=== PATIENT | male | born 1990 | race Caucasian/White ===

== ENCOUNTER → 2016-11-19 | Outpatient (CLI) | payer BC ==
[~2016-11-19] MED LIST: ALBUTEROL IH; AMOX500C2 PO; CETI10TA57 PO; DICL75TA2 PO; ONDA-43 PO; TRM50T PO; albuterol nebulizer INH
[2016-11-19 16:26] LABS: BASOPHILS % (AUTO) 0 % (0-10); EOSINOPHILS # (AUTO) 0.4 10^3/uL (0.0-0.3); EOSINOPHILS % (AUTO) 4 % (0-10); LYMPHOCYTES # (AUTO) 2.5 X 10^3 (1.0-4.0); LYMPHOCYTES % (AUTO) 27 % (12-44); MEAN CORPUSCULAR HEMOGLOBIN 32 PG (25-34); MEAN CORPUSCULAR HGB CONC 36 G/DL (32-36); MEAN CORPUSCULAR VOLUME 88 FL (80-99); MEAN PLATELET VOLUME 9.8 FL (7.4-10.4); MONOCYTES # (AUTO) 0.8 X 10^3 (0.0-1.0); MONOCYTES % (AUTO) 9 % (0-12); NEUTROPHILS # (AUTO) 5.4 X 10^3 (1.8-7.8); NEUTROPHILS % (AUTO) 60 % (42-75); PLATELET COUNT 261 10^3/uL (130-400); RED BLOOD COUNT 4.88 10^6/uL (4.35-5.85); RED CELL DISTRIBUTION WIDTH 12.2 % (10.0-14.5); WHITE BLOOD COUNT 9.1 10^3/uL (4.3-11.0)
== END ==
LOC: LAB 16:11
PROVIDERS: ATTEND Family Medicine
DX: R10.31 Right lower quadrant pain (principal)
CPT/HCPCS: 36415; 85025

== ENCOUNTER → 2017-07-20 | Outpatient (CLI) | payer BC | LOC: CARD 13:52 | PROVIDERS: ATTEND Internal Medicine Cardiovascular Disease | DX: R07.89 Other chest pain (principal); R00.2 Palpitations; R06.00 Dyspnea, unspecified; Z82.49 Family history of ischemic heart disease and other diseases of the circulatory system | CPT/HCPCS: 93306 ==

== ENCOUNTER → 2017-08-01 | Outpatient (CLI) | payer BC | LOC: CARD 10:11 | PROVIDERS: ATTEND Internal Medicine Cardiovascular Disease | DX: R07.89 Other chest pain (principal); R00.2 Palpitations; R06.00 Dyspnea, unspecified; Z82.49 Family history of ischemic heart disease and other diseases of the circulatory system | CPT/HCPCS: 93017 ==

== ENCOUNTER 2018-09-11 21:00 | Emergency (ER) | payer BC, OTHER ==
[~2018-09-11] VITALS: Ht 180.3 cm; Wt 72.6 kg
--- OUTSIDE RECORDS SUMMARY | 2018-09-11 21:05 | XMS REPORT ---
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 Active 179165962 Problem High risk sexual behavior Z72.51 Active 334403898 Problem Family history of diabetes mellitus Z83.3 Active 801582130 Problem Mixed hyperlipidemia E78.2 Active 315960594 Problem Intermittent palpitations R00.2 Active 987318481 ALLERGIES No Information ENCOUNTERS Encounter Location Date Diagnosis [facility] [id number] [place] [address] 39691- 5234 September, [facility] [id number] [place] [address] 75687- 1356 12 Jun, 2018 Family history of diabetes mellitus Z83.3 ; Mixed hyperlipidemia E78.2 and Opioid abuse, in remission F11.11 [facility] [address] [address] Jun, Sore throat J02.9 and Nausea and vomiting, intractability of vomiting not specified, unspecified vomiting type R11.2 [facility] [address] [address] Feb, Anxiety state, unspecified F41.1 [facility] [address] [place] [address] 75120- 0261 Feb, Anxiety state, unspecified F41.1 [facility] [address] [place] [address] 02778- 2656 Jan, Pain of left great toe M79.675 [facility] [address] [place] [address] 67812 -3051 05 Jan, 2018 Cough R05 and Viral upper respiratory tract infection J06.9 [facility] [address] [place] [address] 44582- 5882 Dec, Chest discomfort R07.89 ; Anxiety state, unspecified F41.1 ; Intermittent palpitations R00.2 and Dyspnea, unspecified type R06.00 [facility] [id number] [place] [address] 05831- 8274 Dec, Anxiety state, unspecified F41.1 [facility] [facility] [id number] [place] [address] 15953- 0221 Jun, Chest discomfort R07.89 ; Intermittent palpitations R00.2 ; Dyspnea, unspecified type R06.00 and Family history of early CAD Z82.49 [place] [facility] [id number] [place] [address] 85224- 4344 May, [place] [id number] [place] [address] 13978- 1198 May, Mixed hyperlipidemia E78.2 ; Mild intermittent asthma without complication J45.20 ; Family history of early CAD Z82.49 ; Family history of protein S deficiency Z83.2 and Vitamin deficiency E56.9 [place] [facility] [id number] [place] [address] 02649- 0903 Nov, [facility] [facility] [id number] [place] [address] 22748- 2101 Apr, Chest discomfort R07.89 and Intermittent palpitations R00.2 [place] [id number] [place] [address] 33179- 6695 Mar, Chest pain, unspecified type R07.9 ; Dyspnea, unspecified type R06.00 ; Mixed hyperlipidemia E78.2 and Family history of early CAD Z82.49 [place] [address] [place] [address]- 7760 04 Feb, 2016 Mixed hyperlipidemia E78.2 ; Chest discomfort R07.89 and Intermittent palpitations R00.2 [facility] [address] 30758- 3834 Feb, [facility] [address] 51746- 7577 Jan, [facility] IN [facility] [address] 330[address] Nov, Candidiasis B37.9 [place] [address] 51647- 2453 September, Mixed hyperlipidemia E78.2 [place] [address] 57079- 9671 September, Mixed hyperlipidemia E78.2 ; Family history of diabetes mellitus Z83.3 ; Mild intermittent asthma without complication J45.20 ; High risk sexual behavior Z72.51 and Chest discomfort R07.89 [facility] [address] 06058- 7069 May, Cough variant asthma J45.991 [facility] [address] 8[address]59 -8358 Apr, Cough variant asthma J45.991 ; Cough R05 and Wheezing R06.2 [place] [id number] [place] [address] 82408- 2115 Aug, [place] [id number] [place] [address] 98439- 8184 Aug, Via [facility] [address] [place] [id number] Apr [place] [address] 03851- 7465 Apr, [place] [id number] [place] [address] 45698- 0459 Mar, [facility] [place] [facility] [address] [id number] [place] [address]- 8271 Mar, [facility] [place] [facility] [address] [id number] [place] [address]- 5239 Mar, [facility] [place] [facility] [address] [id number] [place] [address]- 0658 Mar, [facility] [place] [facility] [address] [id number] [place] [address]- 2161 Mar, [facility] [place] [facility] [address] [id number] [place] [address]- 3020 Mar, [facility] [place] [facility] [address] [id number] [place] [address]- 3599 Mar, [facility] [place] [facility] [address] [id number] [place] [address]- 8582 Mar, [facility] [place] [facility] [address] [id number] [place] [address]- 0638 Mar, [facility] [place] [facility] [address] [id number] [place] [address]- 8668 Nov, [facility] [place] [facility] [address] [id number] [place] [address]- 6032 Nov, [facility] [place] [facility] [address] [id number] [place] [address]- 3481 May, [facility] [place] [facility] [address] [id number] [place] [address]- 7502 May, [facility] [place] [facility] [address] [id number] [place] [address]- 1436 May, [facility] [place] [facility] [address] [id number] [place] [address]- 6569 Apr, [facility] [place] [facility] [address] [id number] [place] [address]- 8475 Apr, [facility] [place] [facility] [address] [id number] [place] [address]- 7496 Apr, [facility] [place] [facility] [address] [id number] [place] [address]- 1919 Apr, [facility] [place] [facility] [address] [id number] [place] [address]- 4647 Dec, [facility] [place] [facility] [address] [id number] [place] [address] Dec, [facility] [place] [facility] [address] [id number] [place] [address]- 7261 Dec, [facility] [place] [facility] [address] [id number] [place] [address]- 9697 Dec, [facility] [place] [facility] [address] [id number] [place] [address]- 3437 Dec, [facility] [place] [facility] [address] [id number] [place] [address]- 1187 Dec, [facility] [place] [facility] [address] [id number] [place] [address]- 8003 Nov, [facility] [place] [facility] [address] [id number] [place] [address]- 8775 Nov, [facility] [place] [facility] [address] [id number] [place] [address]- 7578 Nov, [facility] [place] [facility] [address] [id number] [place] [address]- 8006 Nov, [facility] [place] [facility] [address] [id number] [address] 3063 Oct, [facility] [place] [facility] [address] [id number] [place] [address]- 0261 Oct, [facility] [place] [facility] [address] [id number] [place] [address]- 7633 15 Aug, 2012 [facility] [place] [facility] [address] [id number] [place] [address]- 8817 Jul, [facility] [place] [facility] [address] [id number] [place] [address]- 4023 Jun, [facility] [address] [id number] [place] [address]- 1229 May, [facility] [place] [facility] [address] [id number] [place] [address]- 9224 May, [facility] [place] [facility] [address] [id number] [place] [address]- 8566 May, [facility] [place] [facility] [address] [id number] [place] [address]- 0211 May, [facility] [place] [facility] [address] [id number] [place] [address]- 5641 Mar, [facility] [place] [facility] [address] [id number] [place] [address]- 1474 Mar, [facility] [address] [id number] [place] [address]- 4168 Mar, [facility] [place] [facility] [address] [id number] [place] [address]- 0837 Mar, [facility] [place] [facility] [address] [id number] [place] [address]- 3315 Feb, [facility] [place] [facility] [address] [id number] [place] [address]- 9052 Feb, [facility] [place] [facility] [address] [id number] [place] [address]- 1541 Dec, [facility] [place] [facility] [address] [id number] [place] [address]- 0476 Oct, [facility] [place] [facility] [address] [id number] [place] [address]- 8890 September, [facility] [place] [facility] [address] [id number] [place] [address]- 0516 September, [facility] [place] [facility] [address] [id number] [place] [address]- 1319 Jul, [facility] [place] [facility] [address] [id number] [place] [address]- 1926 Jun, [facility] [place] [facility] [address] [id number] [place] [address]- 6891 Jun, [facility] [place] [facility] [address] [id number] [place] [address]- 9771 Jun, [facility] [place] [facility] [address] [id number] [place] [address]- 9309 Jun, [facility] [place] [facility] [address] [id number] [place] [address]- 1357 Jun, [facility] [place] [facility] [address] [id number] [place] [address]- 8361 May, [facility] [place] [facility] [address] [id number] [place] [address]- 1786 May, [facility] [place] [facility] [address] [id number] [place] [address]- 9803 Apr, [facility] [place] [facility] [address] [id number] [place] [address]- 9161 Apr, [facility] [place] [facility] [address] [id number] [place] [address]- 1494 Dec, [facility] [place] [facility] [address] [id number] [place] [address]- 8543 September, [facility] [place] [facility] [address] [id number] [address]- 2660 Mar, [facility] [place] [facility] [address] [id number] [place] [address]- 5397 Feb, [facility] [place] [facility] [address] [id number] [place] [address]- 7272 18 Feb, 2010 [facility] [place] [facility] [address] [id number] [place] [address]- 4769 14 Feb, 2010 [facility] [place] [facility] [address] [facility] [id number] [place] 3185 10 Jan, 2010 IMMUNIZATIONS No Known Immunizations SOCIAL HISTORY Never Assessed REASON FOR VISIT EMR-[facility] [place] PLAN OF CARE VITAL SIGNS MEDICATIONS Unknown Medications RESULTS No Results PROCEDURES No Known procedures INSTRUCTIONS MEDICATIONS ADMINISTERED No Known Medications MEDICAL (GENERAL) HISTORY Type Description Date Medical History asthma Medical History Left hip perthes Medical History History of Drug Abuse Clean Since 2009 Medical History Hyperlipidemia Medical History Depressive disorder, not elsewhere classified Surgical History Multiple orthopedic surgeries on hip, shoulder, and knee.
--- OUTSIDE RECORDS SUMMARY | 2018-09-11 21:05 | XMS REPORT ---
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 Name Role Phone Migration, Doctor Unavailable Unavailable PROBLEMS Type Condition ICD9-CM Code [id number] Code Onset Dates Condition Status SNOMED Code Problem Mild intermittent asthma without complication J45.20 Active 858437579 Problem Chest discomfort R07.89 Active 596504566 Problem Anxiety state, unspecified F41.1 Active 133898479 Problem Opioid abuse, in remission F11.11 Active 228999475 Problem High risk sexual behavior Z72.51 Active 099099695 Problem Family history of diabetes mellitus Z83.3 Active 063621954 Problem Mixed hyperlipidemia E78.2 Active 829683238 Problem Intermittent palpitations R00.2 Active 837499716 ALLERGIES No Information ENCOUNTERS Encounter Location Date Diagnosis [facility] [address] [place] [address] 45563- 5508 September, [facility] [id number] [place] [address] 61238- 1965 12 Jun, 2018 Family history of diabetes mellitus Z83.3 ; Mixed hyperlipidemia E78.2 and Opioid abuse, in remission F11.11 [facility] [address] [address] Jun, Sore throat J02.9 and Nausea and vomiting, intractability of vomiting not specified, unspecified vomiting type R11.2 [facility] [address] [address]- 8173 Feb, Anxiety state, unspecified F41.1 [facility] [address] [place] [address] 13484- 2082 Feb, Anxiety state, unspecified F41.1 [facility] [address] [place] [address] 58934- 3231 Jan, Pain of left great toe M79.675 [facility] IN [facility] [address] [place] [address] 01778 -3140 05 Jan, 2018 Cough R05 and Viral upper respiratory tract infection J06.9 [facility] [address] [place] [address] 76183- 8329 Dec, Chest discomfort R07.89 ; Anxiety state, unspecified F41.1 ; Intermittent palpitations R00.2 and Dyspnea, unspecified type R06.00 [facility] [id number] [place] [address] 70726- 8390 Dec, Anxiety state, unspecified F41.1 [facility] [id number] [place] [address] 54483- 4994 Jun, Chest discomfort R07.89 ; Intermittent palpitations R00.2 ; Dyspnea, unspecified type R06.00 and Family history of early CAD Z82.49 [place] [facility] [id number] [place] [address] 63890- 3451 May, [place] [id number] [place] [address] 72205- 5581 May, Mixed hyperlipidemia E78.2 ; Mild intermittent asthma without complication J45.20 ; Family history of early CAD Z82.49 ; Family history of protein S deficiency Z83.2 and Vitamin deficiency E56.9 [place] [id number] [place] [address] 12773- 4033 Nov, [facility] [id number] [place] [address] 28746- 2172 Apr, Chest discomfort R07.89 and Intermittent palpitations R00.2 [facility] [id number] [place] [address] 89122- 8426 Mar, Chest pain, unspecified type R07.9 ; Dyspnea, unspecified type R06.00 ; Mixed hyperlipidemia E78.2 and Family history of early CAD Z82.49 [place] [address] [place] [address]- 0157 04 Feb, 2016 Mixed hyperlipidemia E78.2 ; Chest discomfort R07.89 and Intermittent palpitations R00.2 [facility] [address] [address]- [address]08 Feb, [facility] [address] 65346- 2300 Jan, [facility] [address] 32827 -2221 Nov, Candidiasis B37.9 [facility] [address] 29844- 7988 September, Mixed hyperlipidemia E78.2 [place] [address] 85947- 9993 September, Mixed hyperlipidemia E78.2 ; Family history of diabetes mellitus Z83.3 ; Mild intermittent asthma without complication J45.20 ; High risk sexual behavior Z72.[address] [facility] [address] 54992- 7453 May, Cough variant asthma J45.991 [facility] [address] 9[address] -0692 Apr, Cough variant asthma J45.991 ; Cough R05 and Wheezing R06.2 [place] [id number] [place] [address] 71647- 5824 Aug, [facility] [id number] [place] [address] 88529- 5823 Aug, Via [facility] [address] [place] [id number] Apr [place] [address] 24832- 0576 Apr, [place] [id number] [place] [address] 61943- 6170 Mar, [facility] [place] [facility] [address] [id number] [place] [address]- 9296 Mar, [facility] [place] [facility] [address] [id number] [place] [address]- 6878 Mar, [facility] [place] [facility] [address] [id number] [place] [address]- 1672 Mar, [facility] [place] [facility] [address] [id number] [place] [address]- 7965 Mar, [facility] [place] [facility] [address] [id number] [place] [address]- 7953 Mar, [facility] [place] [facility] [address] [id number] [place] [address]- 9248 Mar, [facility] [place] [facility] [address] [id number] [place] [address]- 7709 Mar, [facility] [place] [facility] [address] [id number] [place] [address]- 9898 Mar, [facility] [place] [facility] [address] [id number] [place] [address]- 7905 Nov, [facility] [place] [facility] [address] [id number] [place] [address]- 5051 Nov, [facility] [place] [facility] [address] [id number] [place] [address]- 7556 May, [facility] [place] [facility] [address] [id number] [place] [address]- 5860 May, [facility] [place] [facility] [address] [id number] [place] [address]- 9913 May, [facility] [place] [facility] [address] [id number] [place] [address]- 9621 Apr, [facility] [place] [facility] [address] [id number] [place] [address]- 1347 Apr, [facility] [place] [facility] [address] [id number] [place] [address]- 7435 Apr, [facility] [place] [facility] [address] [id number] [place] 4498 Apr, [facility] [place] [facility] [address] [id number] [place] [address]- 7271 Dec, [facility] [place] [facility] [address] [id number] [place] 7314 Dec, [facility] [place] [facility] [address] [id number] [place] [address]- 4675 Dec, [facility] [place] [facility] [address] [id number] [place] [address]- 6567 Dec, [facility] [place] [facility] [address] [id number] [place] [address]- 0514 Dec, [facility] [place] [facility] [address] [id number] [place] [address]- 0155 Dec, [facility] [place] [facility] [address] [id number] [place] [address]- 6183 Nov, [facility] [place] [facility] [address] [id number] [place] [address]- 5796 Nov, [facility] [place] [facility] [address] [id number] [place] [address]- 1131 Nov, [facility] [place] [facility] [address] [id number] [place] [address]- 6706 Nov, [facility] [place] [facility] [address] [id number] [address]- 4151 Oct, [facility] [place] [facility] [address] [id number] [place] [address]- 8238 Oct, [facility] [place] [facility] [address] [id number] [place] [address]- 6056 15 Aug, 2012 [facility] [place] [facility] [address] [id number] [place] [address]- 1046 Jul, [facility] [place] [facility] [address] [id number] [place] [address]- 4717 Jun, [facility] [address] [id number] [place] [address]- 3516 May, [facility] [place] [facility] [address] [id number] [place] [address]- 9502 May, [facility] [place] [facility] [address] [id number] [place] [address]- 8257 May, [facility] [place] [facility] [address] [id number] [place] [address]- 6807 May, [facility] [place] [facility] [address] [id number] [place] [address]- 4956 Mar, [facility] [place] [facility] [address] [id number] [place] [address]- 6711 Mar, [facility] [address] [id number] [place] [address]- 1866 Mar, [facility] [place] [facility] [address] [id number] [place] [address]- 3242 Mar, [facility] [place] [facility] [address] [id number] [place] [address]- 6826 Feb, [facility] [place] [facility] [address] [id number] [place] [address]- 9698 Feb, [facility] [place] [facility] [address] [id number] [place] [address]- 1031 Dec, [facility] [place] [facility] [address] [id number] [place] [address]- 0362 Oct, [facility] [place] [facility] [address] [id number] [place] [address] September, [facility] [place] [facility] [address] [id number] [place] [address] September, [facility] [place] [facility] [address] [id number] [place] [address] Jul, [facility] [place] [facility] [address] [id number] [place] [address] Jun, [facility] [place] [facility] [address] [id number] [place] [address] Jun, [facility] [place] [facility] [address] [id number] [place] [address] Jun, [facility] [place] [facility] [address] [id number] [place] [address] Jun, [facility] [place] [facility] [address] [id number] [place] [address] Jun, [facility] [place] [facility] [address] [id number] [place] [address] May, [facility] [place] [facility] [address] [id number] [place] [address] May, [facility] [place] [facility] [address] [id number] [place] [address] Apr, [facility] [place] [facility] [address] [id number] [place] [address] Apr, [facility] [place] [facility] [address] [id number] [place] [address] Dec, [facility] [place] [facility] [address] [id number] [place] [address] September, [facility] [place] [facility] [address] [id number] [address] Mar, [facility] [place] [facility] [address] [id number] [place] [address] Feb, [facility] [place] [facility] [address] [id number] [place] [address] 18 Feb, 2010 [facility] [place] [facility] [address] [id number] [place] [address] 14 Feb, 2010 [facility] [place] [facility] [address] [facility] [place] [id number] [address] 10 Jan, 2010 IMMUNIZATIONS No Known Immunizations SOCIAL HISTORY Never Assessed REASON FOR VISIT EMR-[facility] [place] OF CARE VITAL SIGNS MEDICATIONS Unknown [...]
--- OUTSIDE RECORDS SUMMARY | 2018-09-11 21:05 | XMS REPORT ---
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 Active 786573322 Problem High risk sexual behavior Z72.51 Active 118483014 Problem Family history of diabetes mellitus Z83.3 Active 801861975 Problem Mixed hyperlipidemia E78.2 Active 543816688 Problem Intermittent palpitations R00.2 Active 315500770 ALLERGIES No Information ENCOUNTERS Encounter Location Date Diagnosis [facility] [id number] [place] [address] 97086- 5550 September, [facility] [id number] [place] [address] 65346- 0547 12 Jun, 2018 Family history of diabetes mellitus Z83.3 ; Mixed hyperlipidemia E78.2 and Opioid abuse, in remission F11.11 [facility] [address], [place] [address] Jun, Sore throat J02.9 and Nausea and vomiting, intractability of vomiting not specified, unspecified vomiting type R11.2 [facility] [address], [place] [address] Feb, Anxiety state, unspecified F41.1 [facility] [address] [place] [address] 92500- 6203 Feb, Anxiety state, unspecified F41.1 [facility] [address] [place] [address] 46217- 9579 Jan, Pain of left great toe M79.675 [facility] [address] [place] [address] 64569 -1877 05 Jan, 2018 Cough R05 and Viral upper respiratory tract infection J06.9 [facility] [address] [place] [address] 41087- 5644 Dec, Chest discomfort R07.89 ; Anxiety state, unspecified F41.1 ; Intermittent palpitations R00.2 and Dyspnea, unspecified type R06.00 [facility] [facility] [id number] [place] [address] 53029- 7396 Dec, Anxiety state, unspecified F41.1 [facility] [id number] [place] [address] 95983- 8622 Jun, Chest discomfort R07.89 ; Intermittent palpitations R00.2 ; Dyspnea, unspecified type R06.00 and Family history of early CAD Z82.49 [facility] [id number] [place] [address] 85188- 2481 May, [facility] [id number] [place] [address] 24355- 8791 May, Mixed hyperlipidemia E78.2 ; Mild intermittent asthma without complication J45.20 ; Family history of early CAD Z82.49 ; Family history of protein S deficiency Z83.2 and Vitamin deficiency E56.9 [facility] [id number] [place] [address] 32982- 8846 Nov, [facility] [id number] [place] [address] 83746- 4158 Apr, Chest discomfort R07.89 and Intermittent palpitations R00.2 [facility] [id number] [place] [address] 88480- 1934 Mar, Chest pain, unspecified type R07.9 ; Dyspnea, unspecified type R06.00 ; Mixed hyperlipidemia E78.2 and Family history of early CAD Z82.49 [place] [address] [place] [address]- [address] 04 Feb, 2016 Mixed hyperlipidemia E78.2 ; Chest discomfort R07.89 and Intermittent palpitations R00.2 [facility] [address] [address]- 1961 Feb, [facility] [address] 61659- 7593 Jan, [facility] [address] 09772 -2367 Nov, Candidiasis B37.9 [place] [address] 19124- 8477 September, Mixed hyperlipidemia E78.2 [facility] [address] 68743- 9293 September, Mixed hyperlipidemia E78.2 ; Family history of diabetes mellitus Z83.3 ; Mild intermittent asthma without complication J45.20 ; High risk sexual behavior Z72.51 and Chest discomfort R07.89 [facility] [address] 59299- 3481 May, Cough variant asthma J45.991 [facility] [address] [address]83 [address]8157 Apr, Cough variant asthma J45.991 ; Cough R05 and Wheezing R06.2 [facility] [id number] [place] [address] 34598- 9100 Aug, [facility] [id number] [place] [address] 89606- 7154 Aug, Via [facility] [address] [place] [id number] Apr [place] [address] 16324- 3911 Apr, [facility] [id number] [place] [address] 46695- 7526 Mar, [facility] [place] [facility] [address] [id number] [place] [address]- 7686 Mar, [facility] [place] [facility] [address] [id number] [place] [address]- 1387 Mar, [facility] [place] [facility] [address] [id number] [place] [address]- 1070 Mar, [facility] [place] [facility] [address] [id number] [place] [address]- 2540 Mar, [facility] [place] [facility] [address] [id number] [place] [address]- 5928 Mar, [facility] [place] [facility] [address] [id number] [place] [address]- 7508 Mar, [facility] [place] [facility] [address] [id number] [place] [address]- 3225 Mar, [facility] [place] [facility] [address] [id number] [place] [address]- 3897 Mar, [facility] [place] [facility] [address] [id number] [place] [address]- 7955 Nov, [facility] [place] [facility] [address] [id number] [place] [address]- 5394 Nov, [facility] [place] [facility] [address] [id number] [place] [address]- 0555 May, [facility] [place] [facility] [address] [id number] [place] [address]- 4272 May, [facility] [place] [facility] [address] [id number] [place] [address]- 3511 May, [facility] [place] [facility] [address] [id number] [place] [address]- 2158 Apr, [facility] [place] [facility] [address] [id number] [place] [address]- 9011 Apr, [facility] [place] [facility] [address] [id number] [place] [address]- 7942 Apr, [facility] [place] [facility] [address] [id number] [place] 0622 Apr, [facility] [place] [facility] [address] [id number] [place] [address]- 4614 Dec, [facility] [place] [facility] [address] [id number] [place] 2810 Dec, [facility] [place] [facility] [address] [id number] [place] [address]- 9148 Dec, [facility] [place] [facility] [address] [id number] [place] [address]- 3959 Dec, [facility] [place] [facility] [address] [id number] [place] [address]- 5564 Dec, [facility] [place] [facility] [address] [id number] [place] [address]- 0004 Dec, [facility] [place] [facility] [address] [id number] [place] [address]- 7940 Nov, [facility] [place] [facility] [address] [id number] [place] [address]- 8618 Nov, [facility] [place] [facility] [address] [id number] [place] [address]- 3487 Nov, [facility] [place] [facility] [address] [id number] [place] [address]- 2089 Nov, [facility] [place] [facility] [address] [id number] [address]- 4497 Oct, [facility] [place] [facility] [address] [id number] [place] [address]- 3261 Oct, [facility] [place] [facility] [address] [id number] [place] [address]- 7050 15 Aug, 2012 [facility] [place] [facility] [address] [id number] [place] [address]- 4130 Jul, [facility] [place] [facility] [address] [id number] [place] [address]- 2563 Jun, [facility] [address] [id number] [place] [address]- 7643 May, [facility] [place] [facility] [address] [id number] [place] [address]- 1571 May, [facility] [place] [facility] [address] [id number] [place] [address]- 9832 May, [facility] [place] [facility] [address] [id number] [place] [address]- 9718 May, [facility] [place] [facility] [address] [id number] [place] [address]- 6804 Mar, [facility] [place] [facility] [address] [id number] [place] [address]- 7632 Mar, [facility] [address] [id number] [place] [address]- 0777 Mar, [facility] [place] [facility] [address] [id number] [place] [address]- 6194 Mar, [facility] [place] [facility] [address] [id number] [place] [address]- 9261 Feb, [facility] [place] [facility] [address] [id number] [place] [address]- 3248 Feb, [facility] [place] [facility] [address] [id number] [place] [address]- 7521 Dec, [facility] [place] [facility] [address] [id number] [place] [address]- 6762 Oct, [facility] [place] [facility] [address] [id number] [place] [address]- 8606 September, [facility] [place] [facility] [address] [id number] [place] [address]- 3026 September, [facility] [place] [facility] [address] [id number] [place] [address]- 4671 Jul, [facility] [place] [facility] [address] [id number] [place] [address]- 7940 Jun, [facility] [place] [facility] [address] [id number] [place] [address]- 0231 Jun, [facility] [place] [facility] [address] [id number] [place] [address]- 1777 Jun, [facility] [place] [facility] [address] [id number] [place] [address]- 8638 Jun, [facility] [place] [facility] [address] [id number] [place] [address]- 3001 Jun, [facility] [place] [facility] [address] [id number] [place] [address]- 3040 May, [facility] [place] [facility] [address] [id number] [place] [address]- 5773 May, [facility] [place] [facility] [address] [id number] [place] [address]- 9666 Apr, [facility] [place] [facility] [address] [id number] [place] [address]- 9790 Apr, [facility] [place] [facility] [address] [id number] [place] [address]- 5768 Dec, [facility] [place] [facility] [address] [id number] [place] [address]- 5020 September, [facility] [place] [facility] [address] [id number], [place] [address]- 8013 Mar, [facility] [place] [facility] [address] [id number] [place] [address]- 7556 Feb, [facility] [place] [facility] [address] [id number] [place] [address]- 3412 18 Feb, 2010 [facility] [place] [facility] [address] [id number] [place] [address]- 7018 14 Feb, 2010 [facility] [place] [facility] [address] [facility] [id number] [place]- [address]193 10 Jan, 2010 IMMUNIZATIONS No Known Immunizations SOCIAL HISTORY Never Assessed REASON FOR VISIT EMR-[facility] [place] PLAN OF CARE VITAL SIGNS MEDICATIONS Unknown [...]
--- OUTSIDE RECORDS SUMMARY | 2018-09-11 21:05 | XMS REPORT ---
Author Author Migration, Doctor Organization [facility] Address Unknown Phone Unavailable Care Team Providers Care Rat Breeder Name Role Phone Migration, Doctor Unavailable Unavailable PROBLEMS Type Condition ICD9-CM Code STX73-IY Code Onset Dates Condition Status SNOMED Code Problem Mild intermittent asthma without complication J45.20 Active 498106004 Problem Chest discomfort R07.89 Active 866152361 Problem Anxiety state, unspecified F41.1 Active 327262693 Problem Opioid abuse, in remission F11.11 Active 156887685 Problem High risk sexual behavior Z72.51 Active 721242442 Problem Family history of diabetes mellitus Z83.3 Active 884682212 Problem Mixed hyperlipidemia E78.2 Active 122409632 Problem Intermittent palpitations R00.2 Active 243117880 ALLERGIES No Information ENCOUNTERS Encounter Location Date Diagnosis [facility] [place] [id number] [place] [address] 21957- 2388 Jun, Family history of diabetes mellitus Z83.3 ; Mixed hyperlipidemia E78.2 and Opioid abuse, in remission F11.11 [facility] [id number] [place] [address] 58543 -7631 Jun, Sore throat J02.9 and Nausea and vomiting, intractability of vomiting not specified, unspecified vomiting type R11.2 [place] [facility] [id number] [place] [address] 27159- 0397 Feb, Anxiety state, unspecified F41.1 [facility] [id number] [place] [address] 42654- 5091 Feb, Anxiety state, unspecified F41.1 [facility] [place] [id number] [place] [address] 66772- 8273 Jan, Pain of left great toe M79.675 [facility] [id number] [place] [address] 09350 -3083 Jan, Cough R05 and Viral upper respiratory tract infection J06.9 [place] [id number] [place] [address] 17489- 6327 Dec, Chest discomfort R07.89 ; Anxiety state, unspecified F41.1 ; Intermittent palpitations R00.2 and Dyspnea, unspecified type R06.00 [place] [place] [id number] [place] [address] 36359- 1921 Dec, Anxiety state, unspecified F41.1 [place] [address] 82572- 4798 Jun, Chest discomfort R07.89 ; Intermittent palpitations R00.2 ; Dyspnea, unspecified type R06.00 and Family history of early CAD Z82.49 [place] [id number] [place] [address] 86684- 3091 May, [place] [address] 59641- 8454 May, Mixed hyperlipidemia E78.2 ; Mild intermittent asthma without complication J45.20 ; Family history of early CAD Z82.49 ; Family history of protein S deficiency Z83.2 and Vitamin deficiency E56.9 [place] [id number] [place] [address] 60582- 8796 Nov, [place] [address] 07992- 1793 Apr, Chest discomfort R07.89 and Intermittent palpitations R00.2 [place] [place] [id number] [place] [address] 12272- 6667 Mar, Chest pain, unspecified type R07.9 ; Dyspnea, unspecified type R06.00 ; Mixed hyperlipidemia E78.2 and Family history of early CAD Z82.49 [place] [id number] [place] [address] 36461- 7690 Feb, Mixed hyperlipidemia E78.2 ; Chest discomfort R07.89 and Intermittent palpitations R00.2 [facility] [place] [id number] [place] [address] 95429- 4238 Feb, [facility] [place] [address] 57144- 8668 Jan, [facility] [address] 96604 -0929 Nov, Candidiasis B37.9 [facility] [place] [address] 03004- 2639 September, Mixed hyperlipidemia E78.2 [place] [address] 66723- 4115 September, Mixed hyperlipidemia E78.2 ; Family history of diabetes mellitus Z83.3 ; Mild intermittent asthma without complication J45.20 ; High risk sexual behavior Z72.51 and Chest discomfort R07.89 [place] [address] 62854- 3341 May, Cough variant asthma J45.991 [facility] [id number] [place] [address] 87425 -4327 Apr, Cough variant asthma J45.991 ; Cough R05 and Wheezing R06.2 [place] [id number] [place] [address] 91033- 3338 Aug, [place] [address] 56709- 9196 Aug, Via [facility] [address] [place] [id number] Apr [place] [id number] [place] [address] 79759- 6082 Apr, [place] [address] 47269- 7137 Mar, [place] [id number] [place] [address] 31565- 6354 Mar, [facility] [place] [facility] [address] [id number] [place] [address]- 9362 Mar, [facility] [place] [facility] [address] [id number] [place] [address]- 7069 Mar, [facility] [place] [facility] [address] [id number] [place] [address]- 8476 Mar, [facility] [place] [facility] [address] [id number] [place] [address]- 8534 Mar, [facility] [place] [facility] [address] [id number] [place] [address]- 3261 Mar, [facility] [place] [facility] [address] [id number] [place] [address]- 1439 Mar, [facility] [place] [facility] [address] [id number] [place] [address]- 5930 Mar, [facility] [place] [facility] [address] [id number] [place] [address]- 5001 Nov, [facility] [place] [facility] [address] [id number] [place] [address]- 5238 Nov, [facility] [place] [facility] [address] [id number] [place] [address]- 1419 May, [facility] [place] [facility] [address] [id number] [place] [address]- 8144 May, [facility] [place] [facility] [address] [id number] [place] [address]- 9638 May, [facility] [place] [facility] [address] [id number] [place] [address]- 3017 Apr, [facility] [place] [facility] [address] [id number] [place] [address]- 5981 Apr, [facility] [place] [facility] [address] [id number] [place] [address]- 1116 Apr, [facility] [place] [facility] [address] [id number] [place] [address]- 7282 Apr, [facility] [address] [id number] [place] [address]- 0736 Dec, [facility] [place] [facility] [address] [id number] [place] [address]- 7521 Dec, [facility] [place] [facility] [address] [id number] [place] [address]- 0604 Dec, [facility] [place] [facility] [address] [id number] [place] [address]- 6130 Dec, [facility] [place] [facility] [address] [id number] [place] [address]- 5313 Dec, [facility] [place] [facility] [address] [id number] [place] [address]- 0532 Dec, [facility] [place] [facility] [address] [id number] [place] [address]- 9179 Nov, [facility] [place] [facility] [address] [id number] [place] [address]- 6993 Nov, [facility] [place] [facility] [address] [id number] [place] [address]- 9582 Nov, [facility] [place] [facility] [address] [id number] [place] [address]- 0796 Nov, [facility] [place] [facility] [address] [id number] [place] [address]- 2778 Oct, [facility] [place] [facility] [address] [id number], [place] [address]- 7777 Oct, [facility] [place] [facility] [address] [id number] [place] [address]- 9930 Aug, [facility] [place] [facility] [address] [id number] [place] [address]- 8059 Jul, [facility] [place] [facility] [address] [id number] [place] [address]- 4050 Jun, [facility] [place] [facility] [address] [id number] [place] [address]- 3352 May, [facility] [address] [id number] [place] [address]- 7496 May, [facility] [place] [facility] [address] [id number] [place] [address]- 9607 May, [facility] [address] [id number] [place] [address]- 0184 May, [facility] [place] [facility] [address] [id number] [place] [address]- 4326 Mar, [facility] [address] [id number] [place] [address]- 7663 Mar, [facility] [place] [facility] [address] [id number] [place] [address]- 5032 Mar, [facility] [address] [id number] [place] [address]- 3872 Mar, [facility] [address] [id number] [place] [address]- 3009 Feb, [facility] [place] [facility] [address] [id number] [place] [address]- 7959 Feb, [facility] [address] [id number] [place] [address]- 6738 Dec, [facility] [place] [facility] [address] [id number] [place] [address]- 1399 Oct, [facility] [place] [facility] [address] [id number] [place] [address]- 5503 September, [facility] [place] [facility] [address] [id number] [place] [address]- 7832 September, [facility] [place] [facility] [address] [id number] [place] [address]- 3886 Jul, [facility] [place] [facility] [address] [id number] [place] [address] Jun, [facility], [place] [address] [id number], [place] [address] Jun, [facility], [place] [address] [id number], [place] [address] Jun, [facility], [place] [address] [id number], [place] [address] Jun, [facility], [place] [address] [id number], [place] [address] Jun, [facility], [place] [address] [id number] [place] [address] May, [facility], [place] [address] [facility] [id number], [place] [address] May, [facility], [place] [address] [facility] [id number], [place] [address] Apr, [facility], [place] [address] [facility] [id number], [place] [address] Apr, [facility], [place] [address] [facility] [id number], [place] [address] Dec, [facility], [place] [address] [facility] [id number], [place] [address] September, [facility], [place] [address] [facility] [id number], [place] [address] Mar, [facility], [place] [address] [facility] [id number], [place] [address] Feb, [facility], [place] [address] [facility] [id number], [place] [address] 18 Feb, 2010 [facility], [place] [address] [facility] [id number], [place] [address] 14 Feb, 2010 [facility], [place] [address] [facility] [id number], [place] [address] 10 Jan, 2010 IMMUNIZATIONS No Known Immunizations SOCIAL HISTORY Never Assessed REASON FOR VISIT EMR-[facility] PLAN OF CARE VITAL SIGNS MEDICATIONS Medication Instructions Dosage Frequency Start Date End Date Duration Status ZyrTEC 10 mg take 1 tablet (10 mg) by oral route once daily Oct, Active Vitamin D2 50,000 unit take 1 capsule by Oral route 2 times per week for 8 weeks Then take Vit D 2000 IU daily OTC Mar, Active Albuterol Sulfate 90 mcg/actuation 2 puffs by Inhalation route every 6 hours as needed PRN cough or wheezing Apr, Active PredniSONE 20 mg 1 tablet by Oral route 2 times per day for 5 day(s) Dec, Active Naproxen 500 mg take 1 tablet by Oral route 1 time per day with food Mar, Active Cipro 500 mg 1 tablet by Oral route every 12 hours for 14 day(s) Nov Active RESULTS No Results PROCEDURES No Known procedures INSTRUCTIONS MEDICATIONS ADMINISTERED No Known Medications MEDICAL (GENERAL) HISTORY Type Description Date Medical History asthma Medical History Left hip perthes Medical History History of Drug Abuse Clean Since 2009 Medical History Hyperlipidemia Medical History Depressive disorder, not elsewhere classified Surgical History Multiple orthopedic surgeries on hip, shoulder, and knee.
--- OUTSIDE RECORDS SUMMARY | 2018-09-11 21:06 | XMS REPORT ---
Author Author KRZYSZTOF MCGHEE Organization [facility] Address [address] [place] [address] Care Team Providers Care Manager E Commerce Name Role Phone KRZYSZTOF MCGHEE Unavailable PROBLEMS Type Condition ICD9-CM Code RVG98-UC Code Onset Dates Condition Status SNOMED Code Problem Mild intermittent asthma without complication J45.20 Active 391276097 Problem Anxiety state, unspecified F41.1 Active 856481275 Problem Intermittent palpitations R00.2 Active 338492705 Problem High risk sexual behavior Z72.51 Active 773002612 Problem Chest discomfort R07.89 Active 476218444 Problem Mixed hyperlipidemia E78.2 Active 706052831 Problem Family history of diabetes mellitus Z83.3 Active 381079631 ALLERGIES No Information ENCOUNTERS Encounter Location Date Diagnosis [facility] [id number] [place] [address] 47424- 1113 Apr, [facility] [address] 74[address]- 1753 Mar, [facility] [id number] [place] [address] 97777- 1021 Mar, [facility] [id number] [place] [address] 36532- 1256 Feb, Anxiety state, unspecified F41.1 [facility] [id number] [place] [address] 37313- 9637 Feb, Anxiety state, unspecified F41.1 [facility] [id number] [place] [address] 68352- 1943 Jan, Pain of left great toe M79.675 [facility] [id number] [place] [address] 70434 -8744 05 Jan, 2018 Cough R05 and Viral upper respiratory tract infection J06.9 [place] [id number] [place] [address] 74820- 8860 Dec, Chest discomfort R07.89 ; Anxiety state, unspecified F41.1 ; Intermittent palpitations R00.2 and Dyspnea, unspecified type R06.00 [place] [id number] [place] [address] 81449- 1668 Dec, Anxiety state, unspecified F41.1 [place] [id number] [place] [address] 41186- 3846 Jun, Chest discomfort R07.89 ; Intermittent palpitations R00.2 ; Dyspnea, unspecified type R06.00 and Family history of early CAD Z82.49 [place] [id number] [place] [address] 20664- 0876 May, [place] [address] 00959- 0200 May, Mixed hyperlipidemia E78.2 ; Mild intermittent asthma without complication J45.20 ; Family history of early CAD Z82.49 ; Family history of protein S deficiency Z83.2 and Vitamin deficiency E56.9 [place] [id number] [place] [address] 97802- 8645 Nov, [place] [id number] [place] [address] 13210- 0228 Apr, Chest discomfort R07.89 and Intermittent palpitations R00.2 [place] [id number] [place] [address] 95205- 8272 Mar, Chest pain, unspecified type R07.9 ; Dyspnea, unspecified type R06.00 ; Mixed hyperlipidemia E78.2 and Family history of early CAD Z82.49 [place] [id number] [place] [address] 44376- 8727 Feb, Mixed hyperlipidemia E78.2 ; Chest discomfort R07.89 and Intermittent palpitations R00.2 [place] [id number] [place] [address] 82505- 6164 Feb, [facility] [id number] [place] [address] 46779- 9205 Jan, [facility] [id number] [place] [address] 59307 -3698 Nov, Candidiasis B37.9 [facility] [address] 19035- 1837 September, Mixed hyperlipidemia E78.2 [facility] [address] 00552- 6671 September, Mixed hyperlipidemia E78.2 ; Family history of diabetes mellitus Z83.3 ; Mild intermittent asthma without complication J45.20 ; High risk sexual behavior Z72.51 and Chest discomfort R07.89 [place] [address] 92281- 8626 May, Cough variant asthma J45.991 [facility] [id number] [place] [address] 49982 -1062 Apr, Cough variant asthma J45.991 ; Cough R05 [address]2 [facility] [id number] [place] [address] 28186- 1075 Aug, [facility] [id number] [place] [address] 93618- 8584 Aug, [facility] [address] [place] [id number] [address] [facility] [id number] [place] [address] 30272- 5389 Apr, [facility] [address] 34329- 4891 Mar, [facility] [id number] [place] [address] 97797- 2170 Mar, [facility] [address] 62008- 4086 Mar, [facility] [place] [facility] [address] [id number] [place] [address]- 7276 Mar, [facility] [place] [facility] [address] [id number] [place] [address]- 0259 Mar, [facility] [place] [facility] [address] [id number] [place] [address]- 8828 Mar, [facility] [place] [facility] [address] [id number] [place] [address]- 6860 Mar, [facility] [place] [facility] [address] [id number] [place] [address]- 4833 Mar, [facility] [place] [facility] [address] [id number] [place] [address]- 8035 Mar, [facility] [place] [facility] [address] [id number] [place] [address]- 1377 Nov, [facility] [place] [facility] [address] [id number] [place] [address]- 6748 Nov, [facility] [place] [facility] [address] [id number] [place] [address]- 8211 May, [facility] [place] [facility] [address] [id number] [place] [address]- 2897 May, [facility] [place] [facility] [address] [id number] [place] [address]- 6669 May, [facility] [place] [facility] [address] [id number], [place] [address]- 9257 Apr, [facility] [place] [facility] [address] [id number] [place] [address]- 4062 Apr, [facility] [place] [facility] [address] [id number] [place] [address]- 1244 Apr, [facility] [place] [facility] [address] [id number] [place] [address]- 7774 Apr, [facility] [place] [facility] [address] [id number] [place] [address]- 1986 Dec, [facility] [address] [id number] [place] [address]- 8188 Dec, [facility] [address] [id number] [place] [address]- 2779 Dec, [facility] [address] [id number] [place] [address]- 3670 Dec, [facility] [address] [id number] [place] [address]- 4284 Dec, [facility] [address] [id number] [place] [address]- 1368 Dec, [facility] [address] [id number] [place] [address]- 9200 Nov, [facility] [address] [id number] [place] [address]- 2702 Nov, [facility] [address] [id number] [place] [address]- 3906 Nov, [facility] [address] [id number] [place] [address]- 0387 Nov, [facility] [address] [id number] [place] [address]- 5248 Oct, [facility] [address] [id number] [place] [address]- 4283 Oct, [facility] [address] [id number] [place] [address]- 6198 Aug, [facility] [place] [facility] [address] [id number] [place] [address]- 7808 Jul, [facility] [place] [facility] [address] [id number] [place] [address]- 7020 Jun, [facility] [address] [id number] [place] [address]- 0794 May, [facility] [place] [facility] [address] [id number] [place] [address]- 9091 May, [facility] [place] [facility] [address] [id number] [place] [address]- 3302 May, [facility] [place] [facility] [address] [id number] [place] [address]- 5486 May, [facility] [place] [facility] [address] [id number] [place] [address]- 7355 Mar, [facility] [place] [facility] [address] [id number] [place] [address]- 7953 Mar, [facility] [place] [facility] [address] [id number] [place] [address]- 5358 Mar, [facility] [place] [facility] [address] [id number] [place] [address]- 0465 Mar, [facility] [place] [facility] [address] [id number] [place] [address]- 5594 Feb, [facility] [place] [facility] [address] [id number] [place] [address]- 2961 Feb, [facility] [place] [facility] [address] [id number] [place] [address]- 1236 Dec, [facility] [place] [facility] [address] [id number] [place] [address]- 3726 Oct, [facility] [place] [facility] [address] [id number] [place] [address]- 6532 September, [facility] [place] [facility] [address] [id number] [place] [address]- 7401 September, [facility] [place] [facility] [address] [id number] [place] [address]- 1506 Jul, [facility] [place] [facility] [address] [id number] [place] [address]- 0116 Jun, [facility] [place] [facility] [address] [id number], [place] [address]- 5947 08 Jun, 2011 [facility] [address] [address] 6826 Jun, [facility] [address] [address] 1846 Jun, [facility] [address] [address] 4746 Jun, [facility] [id number] [address] 9061 May, [facility] [id number] [place] [address] 48392- 6568 May, [facility] [address] [address] 7646 Apr, [facility] [id number] [address] 7468 Apr, [facility] [address] [address] 9828 Dec, [facility] [address] [address] 5487 September, [facility] [address] [address] 9811 Mar, [facility] [address], [place] [address]- 7207 Feb, [facility] [address]- 7804 [address], [address] [facility] [address], [place] [address]- 3362 [address], [address] [facility] [address]- 9352 10 Jan, 2010 IMMUNIZATIONS No Known Immunizations SOCIAL HISTORY Never Assessed REASON FOR VISIT f/u PLAN OF CARE Activity Details Follow Up Next available Reason:anxiety & anger VITAL SIGNS MEDICATIONS Unknown Medications RESULTS No Results PROCEDURES Procedure Date Ordered Result Body Site Psychotherapy, patient &/family, 45 minutes, established patient Mar 08, 2018 INSTRUCTIONS MEDICATIONS ADMINISTERED No Known Medications MEDICAL (GENERAL) HISTORY Type Description Date Medical History asthma Medical History Left hip perthes Medical History History of Drug Abuse Clean Since 2009 Medical History Hyperlipidemia Medical History Depressive disorder, not elsewhere classified Surgical History Multiple orthopedic surgeries on hip, shoulder, and knee.
--- OUTSIDE RECORDS SUMMARY | 2018-09-11 21:06 | XMS REPORT ---
Author Author GENEVA SANCHEZ [facility] Address [address] [place] [address] Phone Unavailable Care Team Providers Care Glue Spreading Machine Operator Name Role Phone GENEVA SANCHEZ Unavailable Unavailable PROBLEMS Type Condition ICD9-CM Code WDM25-UA Code Onset Dates Condition Status SNOMED Code Problem Mild intermittent asthma without complication J45.20 Active 698843169 Problem Anxiety state, unspecified F41.1 Active 184291058 Problem Intermittent palpitations R00.2 Active 717318203 Problem High risk sexual behavior Z72.51 Active 359184143 Problem Chest discomfort R07.89 Active 761144163 Problem Mixed hyperlipidemia E78.2 Active 633775153 Problem Family history of diabetes mellitus Z83.3 Active 209628790 ALLERGIES Substance Reaction Event Type Date Status Latex Unknown Drug Allergy Jan, Active Adhesive Tape Unknown Drug Allergy Jan, Active Morphine Sulfate Unknown Drug Allergy Jan, Active Iodine Unknown Drug Allergy Jan, Active Dilaudid Unknown Drug Allergy Jan, Active Demerol Unknown Drug Allergy Jan, Active Chocolate Flavor Unknown Drug Allergy Jan, Active ENCOUNTERS Encounter Location Date Diagnosis [facility] [id number] [place] [address] 81925- 7796 Jan, Pain of left great toe M79.675 [facility] [address] [place] [address] 68828 -3513 Jan, Cough R05 and Viral upper respiratory tract infection J06.9 [facility] [id number] [place] [address] 95917- 3115 Dec, Chest discomfort R07.89 ; Anxiety state, unspecified F41.1 ; Intermittent palpitations R00.2 and Dyspnea, unspecified type R06.00 [facility] [address] [place] [address] 27466- 2811 Dec, Anxiety state, unspecified F41.1 [place] [id number] [place] [address] 47472- 6731 Jun, Chest discomfort R07.89 ; Intermittent palpitations R00.2 ; Dyspnea, unspecified type R06.00 and Family history of early CAD Z82.49 [place] [id number] [place] [address] 16788- 7067 May, [place] [address] 20607- 1570 May, Mixed hyperlipidemia E78.2 ; Mild intermittent asthma without complication J45.20 ; Family history of early CAD Z82.49 ; Family history of protein S deficiency Z83.2 and Vitamin deficiency E56.9 [place] [id number] [place] [address] 44610- 6007 Nov, [place] [address] 32377- 8025 Apr, Chest discomfort R07.89 and Intermittent palpitations R00.2 [place] [id number] [place] [address] 75086- 9903 Mar, Chest pain, unspecified type R07.9 ; Dyspnea, unspecified type R06.00 ; Mixed hyperlipidemia E78.2 and Family history of early CAD Z82.49 [place] [id number] [place] [address] 22730- 2873 Feb, Mixed hyperlipidemia E78.2 ; Chest discomfort R07.89 and Intermittent palpitations R00.2 [place] [id number] [place] [address] 41856- 9038 Feb, [place] [address] 13389- 6067 Jan, [facility] [id number] [place] [address] 46022 -8537 Nov, Candidiasis B37.9 [place] [address] [place] [address]- 3483 13 Sep, 2015 Mixed hyperlipidemia E78.2 [facility] [id number] [place] [address] 40161- 4582 September, Mixed hyperlipidemia E78.2 ; Family history of diabetes mellitus Z83.3 ; Mild intermittent asthma without complication J45.20 ; High risk sexual behavior Z72.51 and Chest discomfort R07.89 [facility] [id number] [place] [address] 61958- 6690 May, Cough variant asthma J45.991 [facility] [id number] [place] [address] 09514 -7848 Apr, Cough variant asthma J45.991 ; Cough R05 and Wheezing R06.2 [facility] [id number] [place] [address] 50922- 3826 Aug, [facility] [id number] [place] [address] 66226- 9719 Aug, [facility] [place] [id number] Apr [facility] [id number] [place] [address] 45203- 3056 Apr, [facility] [id number] [place] [address] 75183- 8478 Mar, [facility] [id number] [place] [address] 97997- 2275 Mar, [facility] [id number] [place] [address] 07085- 6819 Mar, [facility] [id number] [place] [address] 62322- 1702 Mar, [facility] [id number] [place] [address] 14951- 8147 Mar, [facility] [id number] [place] [address] 72116- 1904 Mar, [facility] [place] [facility] [address] [id number] [place] [address]- 2994 Mar, [facility] [place] [facility] [address] [id number] [place] [address]- 9906 Mar, [facility] [place] [facility] [address] [id number] [place] [address]- 5901 Mar, [facility] [place] [facility] [address] [id number] [place] [address]- 1844 Nov, [facility] [place] [facility] [address] [id number] [place] [address]- 0075 Nov, [facility] [place] [facility] [address] [id number] [place] [address]- 1446 May, [facility] [place] [facility] [address] [id number] [place] [address]- 2932 May, [facility] [place] [facility] [address] [id number] [place] [address]- 1299 May, [facility] [place] [facility] [address] [id number] [place] [address]- 3871 Apr, [facility] [place] [facility] [address] [id number] [place] [address]- 0627 Apr, [facility] [place] [facility] [address] [id number] [place] [address]- 9655 Apr, [facility] [place] [facility] [address] [id number], [place] [address]- 6156 Apr, [facility] [place] [facility] [address] [id number] [place] [address]- 6727 Dec, [facility] [place] [facility] [address] [id number] [place] [address]- 1356 Dec, [facility] [place] [facility] [address] [id number], [place] [address]- 1756 Dec, [facility] [place] [facility] [address] [id number], [place] [address]- 1976 Dec, [facility] [address] [id number] [place] [address]- 2795 Dec, [facility] [place] [facility] [address] [id number] [place] [address]- 0651 Dec, [facility] [address] [id number] [place] [address]- 4923 Nov, [facility] [address] [id number] [place] [address]- 3057 Nov, [facility] [address] [id number] [place] [address]- 6411 Nov, [facility] [address] [id number] [place] [address]- 3519 Nov, [facility] [address] [id number] [place] [address]- 6436 Oct, [facility] [address] [id number] [place] [address]- 0491 Oct, [facility] [address] [id number] [place] [address]- 1796 Aug, [facility] [address] [id number] [place] [address]- 5919 Jul, [facility] [address] [id number] [place] [address]- 2544 Jun, [facility] [place] [facility] [address] [id number] [place] [address]- 0047 May, [facility] [place] [facility] [address] [id number] [place] [address]- 4006 May, [facility] [place] [facility] [address] [id number] [place] [address]- 0807 May, [facility] [place] [facility] [address] [id number] [place] [address]- 2382 May, [facility] [place] [facility] [address] [id number] [place] [address]- 0327 Mar, [facility] [place] [facility] [address] [id number] [place] [address]- 5753 Mar, [facility] [place] [facility] [address] [id number] [place] [address]- 6031 Mar, [facility] [place] [facility] [address] [id number] [place] [address]- 0043 Mar, [facility] [place] [facility] [address] [id number] [place] [address]- 2234 Feb, [facility] [place] [facility] [address] [id number] [place] [address]- 4072 Feb, [facility] [place] [facility] [address] [id number] [place] [address]- 2281 Dec, [facility] [place] [facility] [address] [id number] [place] [address]- 4744 Oct, [facility] [place] [facility] [address] [id number] [place] [address]- 0554 September, [facility] [place] [facility] [address] [id number] [place] [address]- 9893 September, [facility] [place] [facility] [address] [facility] [id number] [place] [address]- 1260 Jul, [facility] [place] [facility] [address] [id number] [place] [address]- 6382 Jun, [facility] [place] [facility] [address] [id number] [place] [address]- 6828 Jun, [facility] [place] [facility] [address] [id number] [place] [address]- 9857 Jun, [facility] [place] [facility] [address] [id number] [place] [address] Jun, [facility] [place] [facility] [address] [id number] [place] [address] Jun, [facility] [id number] [address] May, [facility] [id number] [address] May, [facility] [id number] [address] Apr, [facility] [id number] [place] [address] Apr, [facility] [id number] [place] [address] Dec, [facility] [id number] [place] [address] September, [facility] [id number] [place] [address] Mar, [facility] [id number] [address] Feb, [facility] [id number] [address] Feb, [facility] [id number] [address] Feb, [facility] [id number] [address] Jan, IMMUNIZATIONS No Known Immunizations SOCIAL HISTORY Never Assessed REASON FOR VISIT Headache, stuffy nose, sore throat started yesterday JStrasserRN PLAN OF CARE Activity Details Follow Up prn Reason: VITAL SIGNS Height 68 in 2018-01-11 Weight 158.0 lbs 2018-01-11 Temperature 97.8 degrees Fahrenheit 2018-01-11 Heart Rate 84 bpm 2018-01-11 Respiratory Rate 18 2018-01-11 BMI 24.02 kg/m2 2018-01-11 Blood pressure systolic 110 mmHg 2018-01-11 Blood pressure diastolic 70 mmHg 2018-01-11 MEDICATIONS Medication Instructions Dosage Frequency Start Date End Date Duration Status Fish Oil 1000 MG Orally 3 times a day 1 capsule 8h Active PredniSONE 20 mg Orally Once a day 1 tablet 24h Jan, Jan, 05 days Active Tessalon Perles 100 mg Orally TID PRN 1 capsule as needed Jan, Jan, 07 days Active Vitamin D-3 1000 UNIT Orally Once a day 1 capsule 24h Active Vitamin B12 1000 MCG Orally Once a day 1 tablet 24h Active ZyrTEC 10 mg by oral route Once a day 1 tablet 24h Oct, May, 30 days Active Albuterol Sulfate (2.5 MG/3ML) 0.083% Inhalation Three times a day 3 ml 8h Active Flax Seed Oil 1000 MG Active Lipitor 10 MG Orally Once a day 1 tablet 24h Dec, 30 day(s) Active Albuterol Sulfate 108 (90 Base) mcg/act Inhalation as directed 2 puffs by Inhalation route every 6 hours as needed PRN cough or wheezing Apr, Active RESULTS No Results PROCEDURES No Known [...]
--- OUTSIDE RECORDS SUMMARY | 2018-09-11 21:06 | XMS REPORT ---
Author Author FINN KELLY Organization [facility] Address [address] [place] [address] Care Team Providers Care Bar Tender Name Role Phone FINN KELLY Unavailable PROBLEMS Type Condition ICD9-CM Code KOT85-JA Code Onset Dates Condition Status SNOMED Code Problem Mild intermittent asthma without complication J45.20 Active 488592624 Problem Anxiety state, unspecified F41.1 Active 215117055 Problem Intermittent palpitations R00.2 Active 938617283 Problem High risk sexual behavior Z72.51 Active 585613005 Problem Chest discomfort R07.89 Active 453745359 Problem Mixed hyperlipidemia E78.2 Active 459483509 Problem Family history of diabetes mellitus Z83.3 Active 718681917 ALLERGIES Substance Reaction Event Type Date Status Latex Unknown Drug Allergy Jan, Active Adhesive Tape Unknown Drug Allergy Jan, Active Morphine Sulfate Unknown Drug Allergy Jan, Active Iodine Unknown Drug Allergy Jan, Active Dilaudid Unknown Drug Allergy Jan, Active Demerol Unknown Drug Allergy Jan, Active Chocolate Flavor Unknown Drug Allergy Jan, Active ENCOUNTERS Encounter Location Date Diagnosis [facility] [id number] [place] [address] 48331- 7021 Jan, Pain of left great toe M79.675 [facility] [id number] [place] [address] 82649 -0949 05 Jan, 2018 Cough R05 and Viral upper respiratory tract infection J06.9 [facility] [id number] [place] [address] 04024- 4995 Dec, Chest discomfort R07.89 ; Anxiety state, unspecified F41.1 ; Intermittent palpitations R00.2 and Dyspnea, unspecified type R06.00 [facility] [id number] [place] [address] 89169- 6338 Dec, Anxiety state, unspecified F41.1 [facility] [id number] [place] [address] 08125- 7662 Jun, Chest discomfort R07.89 ; Intermittent palpitations R00.2 ; Dyspnea, unspecified type R06.00 and Family history of early CAD Z82.49 [facility] [id number] [place] [address] 50465- 9952 May, [facility] [address] 15091- 9950 May, Mixed hyperlipidemia E78.2 ; Mild intermittent asthma without complication J45.20 ; Family history of early CAD Z82.49 ; Family history of protein S deficiency Z83.2 and Vitamin deficiency E56.9 [facility] [id number] [place] [address] 99485- 9260 Nov, [facility] [address] 56145- 7673 Apr, Chest discomfort R07.89 and Intermittent palpitations R00.2 [facility] [id number] [place] [address] 76845- 8401 Mar, Chest pain, unspecified type R07.9 ; Dyspnea, unspecified type R06.00 ; Mixed hyperlipidemia E78.2 and Family history of early CAD Z82.49 [facility] [id number] [place] [address] 63499- 9651 Feb, Mixed hyperlipidemia E78.2 ; Chest discomfort R07.89 and Intermittent palpitations R00.2 [facility] [id number] [place] [address] 88386- 2659 Feb, [place] [place] [address] 65613- 1044 Jan, [facility] [id number] [place] [address] 33653 -8903 Nov, Candidiasis B37.9 [facility] [id number] [place] [address] 35325- 5914 13 Sep, 2015 Mixed hyperlipidemia E78.2 [facility] [id number] [place] [address] 98255- 5090 September, Mixed hyperlipidemia E78.2 ; Family history of diabetes mellitus Z83.3 ; Mild intermittent asthma without complication J45.20 ; High risk sexual behavior Z72.51 and Chest discomfort R07.89 [facility] [id number] [place] [address] 82942- 0079 May, Cough variant asthma J45.991 [facility] [id number] [place] [address] 24407 -5166 Apr, Cough variant asthma J45.991 ; Cough R05 and Wheezing R06.2 [facility] [id number] [place] [address] 51075- 1912 Aug, [facility] [id number] [place] [address] 06010- 3149 Aug, Via [facility] [address] [place] [id number] Apr [facility] [id number] [place] [address] 72047- 7487 Apr, [facility] [address] [place] [address] 37742- 9787 Mar, [facility] [id number] [place] [address] 52213- 9928 Mar, [facility] [id number] [place] [address] 02718- 9908 Mar, [facility] [id number] [place] [address] 16603- 7013 Mar, [facility] [id number] [place] [address] 497533- 6691 Mar, [facility] [id number] [place] [address] 58235- 8695 Mar, [facility] [place] [facility] [address] [id number] [place] [address]- 9034 Mar, [facility] [place] [facility] [address] [id number] [place] [address]- 8267 Mar, [facility] [place] [facility] [address] [id number] [place] [address]- 9495 Mar, [facility] [place] [facility] [address] [id number] [place] [address]- 7077 Nov, [facility] [place] [facility] [address] [id number] [place] [address]- 9144 Nov, [facility] [place] [facility] [address] [id number] [place] [address]- 0922 May, [facility] [place] [facility] [address] [id number] [place] [address]- 3081 May, [facility] [place] [facility] [address] [id number] [place] [address]- 0583 May, [facility] [place] [facility] [address] [id number] [place] [address]- 2785 Apr, [facility] [place] [facility] [address] [id number] [place] [address]- 0060 Apr, [facility] [place] [facility] [address] [id number] [place] [address]- 3418 Apr, [facility] [place] [facility] [address] [id number] [place] [address]- 9728 Apr, [facility] [place] [facility] [address] [id number] [place] [address]- 3029 Dec, [facility] [place] [facility] [address] [id number] [place] [address]- 7678 Dec, [facility] [place] [facility] [address] [id number] [place] [address]- 3315 Dec, [facility] [place] [facility] [address] [id number] [place] [address]- 2627 Dec, [facility] [address] [id number] [place] [address]- 2243 Dec, [facility] [place] [facility] [address] [id number] [place] [address]- 6029 Dec, [facility] [address] [id number] [place] [address]- 9438 Nov, [facility] [place] [facility] [address] [id number] [place] [address]- 4309 Nov, [facility] [address] [id number] [place] [address]- 1317 Nov, [facility] [address] [id number] [place] [address]- 6934 Nov, [facility] [address] [id number] [place] [address]- 0316 Oct, [facility] [address] [id number] [place] [address]- 9517 Oct, [facility] [address] [id number] [place] [address]- 3164 Aug, [facility] [address] [id number] [place] [address]- 0524 Jul, [facility] [address] [id number] [place] [address]- 9131 Jun, [facility] [place] [facility] [address] [id number] [place] [address]- 2985 May, [facility] [place] [facility] [address] [id number] [place] [address]- 0591 May, [facility] [place] [facility] [address] [id number] [place] [address]- 8706 May, [facility] [place] [facility] [address] [id number] [place] [address]- 4092 May, [facility] [place] [facility] [address] [id number] [place] [address]- 4267 Mar, [facility] [place] [facility] [address] [id number] [place] [address]- 1335 Mar, [facility] [place] [facility] [address] [id number] [place] [address]- 6611 Mar, [facility] [place] [facility] [address] [id number] [place] [address]- 7052 Mar, [facility] [place] [facility] [address] [id number] [place] [address]- 2887 Feb, [facility] [place] [facility] [address] [id number] [place] [address]- 9503 Feb, [facility] [place] [facility] [address] [id number] [place] [address]- 7669 Dec, [facility] [place] [facility] [address] [id number] [place] [address]- 1847 Oct, [facility] [place] [facility] [address] [id number] [place] [address]- 3506 September, [facility] [place] [facility] [address] [id number] [place] [address]- 8722 September, [facility] [place] [facility] [address] [id number] [place] [address]- 0948 Jul, [facility] [place] [facility] [address] [id number], [place] [address]- 7166 Jun, [facility] [place] [facility] [address] [id number] [place] [address]- 4156 Jun, [facility] [place] [facility] [address] [id number] [place] [address]- 3746 Jun, [facility] [place] [facility] [address] [facility] [id number] [place] [address]- 0096 Jun, [facility] [place] [facility] [address] [id number], [place] [address] 2546 Jun, [facility] [address] [address]- 5246 May, [facility] [address] [address] 2546 May, [facility] [address] [address]- 2546 Apr, [facility] [address] [address]- 2546 Apr, [facility] [address] [place] [address] 69992- 2596 Dec, [facility] [address] [address]- 8886 September, [facility] [address] [address]- 7906 Mar, [facility] [address] [place] [address]- 9674 Feb, [facility] [address] [place] [address]- 5142 Feb, [facility] [address] [address]- 6540 Feb, [facility] [id number] [address]- 7275 Jan, IMMUNIZATIONS No Known Immunizations SOCIAL HISTORY Never Assessed REASON FOR VISIT Establish Care-MARY fishman, patient complains of a knot on left foot PLAN OF CARE Activity Details Follow Up 3 Months Reason: VITAL SIGNS Height 68 in 2018-01-26 Weight 160.1 lbs 2018-01-26 Temperature 98.0 degrees Fahrenheit 2018-01-26 Heart Rate 80 bpm 2018-01-26 Respiratory Rate 18 2018-01-26 Oximetry on room air:97 % 2018-01-26 BMI 24.34 kg/m2 2018-01-26 Blood pressure systolic 110 mmHg 2018-01-26 Blood pressure diastolic 68 mmHg 2018-01-26 MEDICATIONS Medication Instructions Dosage Frequency Start Date End Date Duration Status Albuterol Sulfate (2.5 MG/3ML) 0.083% Inhalation Three times a day 3 ml 8h Active ZyrTEC 10 mg by oral route Once a day 1 tablet 24h Oct, May, 30 days Active Vitamin D-3 1000 UNIT Orally Once a day 1 capsule 24h Active Vitamin B12 1000 MCG Orally Once a day 1 tablet 24h Active Albuterol Sulfate 108 (90 Base) mcg/act Inhalation as directed 2 puffs by Inhalation route every 6 hours as needed PRN cough or wheezing Apr, Active Lipitor 10 MG Orally Once a day 1 tablet 24h Dec, 30 day(s) Active Multi For Him - as directed Active Fish Oil 1000 MG Orally 3 times a day 1 capsule 8h Active Flax Seed Oil 1000 MG Active RESULTS Name Result Date Reference Range Xray : Toe(s), Left 2 views (IN HOUSE) 2018-01-26 PROCEDURES Procedure Date Ordered Result Body Site X-RAY EXAM OF TOE(S) Jan 26, 2018 INSTRUCTIONS MEDICATIONS ADMINISTERED No Known Medications MEDICAL (GENERAL) HISTORY Type Description Date Medical History asthma Medical History Left hip perthes Medical History History of Drug Abuse Clean Since 2009 Medical History Hyperlipidemia Medical History Depressive disorder, not elsewhere classified Surgical History Multiple orthopedic surgeries on hip, shoulder, and knee.
--- OUTSIDE RECORDS SUMMARY | 2018-09-11 21:06 | XMS REPORT ---
Author Author KRZYSZTOF MCGHEE Organization [facility] Address [address] [place] [address] Care Team Providers Care Final Touch Up Painter Name Role Phone KRZYSZTOF MCGHEE Unavailable PROBLEMS Type Condition ICD9-CM Code CZE35-BV Code Onset Dates Condition Status SNOMED Code Problem Mild intermittent asthma without complication J45.20 Active 991383379 Problem Anxiety state, unspecified F41.1 Active 791558047 Problem Intermittent palpitations R00.2 Active 989333512 Problem High risk sexual behavior Z72.51 Active 055416606 Problem Chest discomfort R07.89 Active 503954589 Problem Mixed hyperlipidemia E78.2 Active 176424633 Problem Family history of diabetes mellitus Z83.3 Active 850145773 ALLERGIES No Information ENCOUNTERS Encounter Location Date Diagnosis [facility] [address] [address]- [address] Mar, [facility] [address] [address]00- 1482 Feb, [facility] [address] 53876- 0837 Feb, Anxiety state, unspecified F41.1 [facility] [address] 58406- 4564 Jan, Pain of left great toe M79.675 [facility] [address] 92288 -8473 05 Jan, 2018 Cough R05 and Viral upper respiratory tract infection J06.9 [facility] [address] 59392- 6305 Dec, Chest discomfort R07.89 ; Anxiety state, unspecified F41.1 ; Intermittent palpitations R00.2 and Dyspnea, unspecified type R06.00 [facility] [id number] [place] [address] 98378- 0105 Dec, Anxiety state, unspecified F41.1 [facility] [address] 69625- 8333 Jun, Chest discomfort R07.89 ; Intermittent palpitations R00.2 ; Dyspnea, unspecified type R06.00 and Family history of early CAD Z82.49 [place] [address] 80481- 4005 May, [facility] [address] 62867- 5218 May, Mixed hyperlipidemia E78.2 ; Mild intermittent asthma without complication J45.20 ; Family history of early CAD Z82.49 ; Family history of protein S deficiency Z83.2 and Vitamin deficiency E56.9 [facility] [address] 16209- 3611 Nov, [facility] [address] 50005- 7994 Apr, Chest discomfort R07.89 and Intermittent palpitations R00.2 [facility] [address] 04430- 0633 Mar, Chest pain, unspecified type R07.9 ; Dyspnea, unspecified type R06.00 ; Mixed hyperlipidemia E78.2 and Family history of early CAD Z82.49 [facility] [id number] [place] [address] 14703- 1746 Feb, Mixed hyperlipidemia E78.2 ; Chest discomfort R07.89 and Intermittent palpitations R00.2 [facility] [place] [address] 99948- 9744 Feb, [facility] [address] 35673- 8991 Jan, [facility] [address] 12878 -6332 Nov, Candidiasis B37.9 [facility] [id number] [place] [address] 96087- 8057 13 Sep, [address] [facility] [id number] [place] [address] 92165- 8756 September, Mixed hyperlipidemia E78.2 ; Family history of diabetes mellitus Z83.3 ; Mild intermittent asthma without complication J45.20 ; High risk sexual behavior Z72.51 [address].89 [facility] [id number] [place] [address] 59469- 5516 May, Cough variant asthma J45.991 [facility] [id number] [place] [address] 92741 -2213 Apr, Cough variant asthma J45.991 ; Cough R05 and Wheezing R06.2 [facility] [id number] [place] [address] 07950- 8411 Aug, [facility] [id number] [place] [address] 10968- 2974 Aug, [facility] [address] [place] [id number] [address] [facility] [address] [place] [address] 14708- 7505 Apr, [facility] [address] [place] [address] 83930- 4543 Mar, [facility] [address] [place] [address] 73568- 2461 Mar, [facility] [id number] [place] [address] 66806- 9760 Mar, [facility] [id number] [place] [address] 80630- 3278 Mar, [facility] [id number] [place] [address] 07705- 7211 Mar, [facility] [place] [facility] [address] [id number] [place] [address]- 1516 Mar, [facility] [place] [facility] [address] [id number] [place] [address]- 6782 Mar, [facility] [place] [facility] [address] [id number] [place] [address]- 9160 Mar, [facility] [place] [facility] [address] [id number] [place] [address]- 5281 Mar, [facility] [place] [facility] [address] [id number] [place] [address]- 8692 Nov, [facility] [place] [facility] [address] [id number] [place] [address]- 0491 Nov, [facility] [place] [facility] [address] [id number] [place] [address]- 2265 May, [facility] [place] [facility] [address] [id number] [place] [address]- 8019 May, [facility] [place] [facility] [address] [id number] [place] [address]- 0982 May, [facility] [place] [facility] [address] [id number] [place] [address]- 7320 Apr, [facility] [place] [facility] [address] [id number] [place] [address]- 1350 Apr, [facility] [place] [facility] [address] [id number] [place] [address]- 9396 Apr, [facility] [place] [facility] [address] [id number] [place] [address]- 0440 Apr, [facility] [place] [facility] [address] [id number] [place] [address]- 6386 Dec, [facility] [place] [facility] [address] [id number] [place] [address]- 1031 Dec, [facility] [place] [facility] [address] [id number] [place] [address]- 4718 Dec, [facility] [address] [id number] [place] [address]- 6559 Dec, [facility] [place] [facility] [address] [id number] [place] [address]- 1633 Dec, [facility] [place] [facility] [address] [id number] [place] [address]- 8395 Dec, [facility] [place] [facility] [address] [id number] [place] [address]- 1572 Nov, [facility] [place] [facility] [address] [id number] [place] [address]- 4529 Nov, [facility] [place] [facility] [address] [id number] [place] [address]- 6753 Nov, [facility] [address] [id number] [place] [address]- 8329 Nov, [facility] [place] [facility] [address] [id number] [place] [address]- 1815 Oct, [facility] [place] [facility] [address] [id number] [place] [address]- 6674 Oct, [facility] [place] [facility] [address] [id number] [place] [address]- 8978 Aug, [facility] [place] [facility] [address] [id number] [place] [address]- 1070 Jul, [facility] [place] [facility] [address] [id number] [place] [address]- 4080 Jun, [facility] [place] [facility] [address] [id number] [place] [address]- 2064 May, [facility] [place] [facility] [address] [id number] [place] 3641 May, [facility] [place] [facility] [address] [id number] [place] [address]- 7402 May, [facility] [place] [facility] [address] [id number] [place] [address]- 8842 May, [facility] [place] [facility] [address] [id number] [place] [address]- 4967 Mar, [facility] [place] [facility] [address] [id number] [place] [address]- 1717 Mar, [facility] [place] [facility] [address] [id number] [place] [address]- 2825 Mar, [facility] [place] [facility] [address] [id number] [place] [address]- 4885 Mar, [facility] [place] [facility] [address] [id number] [place] [address]- 5571 Feb, [facility] [place] [facility] [address] [id number] [place] [address]- 3076 Feb, [facility] [place] [facility] [address] [id number] [place] [address]- 6255 Dec, [facility] [place] [facility] [address] [id number] [place] [address]- 1540 Oct, [facility] [place] [facility] [address] [id number] [place] [address]- 6949 September, [facility] [place] [facility] [address] [id number] [place] [address]- 6837 September, [facility] [place] [facility] [address] [id number] [place] [address]- 4463 Jul, [facility] [place] [facility] [address] [id number] [place] [address]- 7968 Jun, [facility] [place] [facility] [address] [id number] [place] [address] Jun, [facility] [place] [facility] [address] [id number] [place] [address] Jun, [facility] [place] [facility] [address] [id number] [place] [address] Jun, [facility] [address] [id number] [address] Jun, [facility] [id number] [address] May, [facility] [id number] [address] May, [facility] [id number] [address] Apr, [facility] [id number] [address] Apr, [facility] [id number] [address] Dec, [facility] [id number] [address] September, [facility] [id number] [address] Mar, [facility] [id number] [address] Feb, [facility] [id number] [address] Feb, [facility] [address] [id number] [address] Feb, [facility] [id number] [address] Jan, IMMUNIZATIONS No Known Immunizations SOCIAL HISTORY Never Assessed REASON FOR VISIT f/u PLAN OF CARE Activity Details Follow Up Next available Reason:anger VITAL SIGNS MEDICATIONS Unknown Medications RESULTS No Results PROCEDURES Procedure Date Ordered Result Body Site Psychotherapy, patient &/family, 45 minutes, established patient Feb 14, 2018 INSTRUCTIONS MEDICATIONS ADMINISTERED No Known Medications MEDICAL (GENERAL) HISTORY Type Description Date Medical History asthma Medical History Left hip perthes Medical History History of Drug Abuse Clean Since 2009 Medical History Hyperlipidemia Medical History Depressive disorder, not elsewhere classified Surgical History Multiple orthopedic surgeries on hip, shoulder, and knee.
--- OUTSIDE RECORDS SUMMARY | 2018-09-11 21:07 | XMS REPORT ---
Author Author KRZYSZTOF MCGHEE Organization [facility] Address [address] [place] [address] Care Team Providers Care Car Attendant Name Role Phone KRZYSZTOF MCGHEE Unavailable PROBLEMS Type Condition ICD9-CM Code FKP17-XM Code Onset Dates Condition Status SNOMED Code Problem Mild intermittent asthma without complication J45.20 Active 203221985 Problem Anxiety state, unspecified F41.1 Active 673826613 Problem Intermittent palpitations R00.2 Active 159040488 Problem High risk sexual behavior Z72.51 Active 967755145 Problem Chest discomfort R07.89 Active 393133705 Problem Mixed hyperlipidemia E78.2 Active 974270479 Problem Family history of diabetes mellitus Z83.3 Active 396474452 ALLERGIES No Information ENCOUNTERS Encounter Location Date Diagnosis [facility] [id number] [place] [address] 18635- 5288 Jan, Pain of left great toe M79.[address] [facility] [id number] [place] [address] 17944 -8293 05 Jan, 2018 Cough R05 and Viral upper respiratory tract infection J06.9 [facility] [id number] [place] [address] 15761- 8776 Dec, Chest discomfort R07.89 ; Anxiety state, unspecified F41.1 ; Intermittent palpitations R00.2 and Dyspnea, unspecified type R06.00 [facility] [id number] [place] [address] 14798- 1930 Dec, Anxiety state, unspecified F41.1 [facility] [id number] [place] [address] 21183- 8170 Jun, Chest discomfort R07.89 ; Intermittent palpitations R00.2 ; Dyspnea, unspecified type R06.00 and Family history of early CAD Z82.49 [place] [id number] [place] [address] 09730- 0348 May, [facility] [address] [address]- 0010 May, Mixed hyperlipidemia E78.2 ; Mild intermittent asthma without complication J45.20 ; Family history of early CAD Z82.49 ; Family history of protein S deficiency Z83.2 and Vitamin deficiency E56.9 [place] [address] 68835- 8755 Nov, [place] [address] 88687- 6779 Apr, Chest discomfort R07.89 and Intermittent palpitations R00.2 [place] [address] 98115- 2693 Mar, Chest pain, unspecified type R07.9 ; Dyspnea, unspecified type R06.00 ; Mixed hyperlipidemia E78.2 and Family history of early CAD Z82.49 [place] [id number] [place] [address] 95573- 4808 Feb, Mixed hyperlipidemia E78.2 ; Chest discomfort R07.89 and Intermittent palpitations R00.2 [place] [id number] [place] [address] 55978- 5767 Feb, [place] [address] 40307- 9395 Jan, [facility] [id number] [place] [address] 64127 -9746 Nov, Candidiasis B37.9 [place] [address] 28323- 6297 September, Mixed hyperlipidemia E78.2 [place] [id number] [place] [address] 14981- 8506 September, Mixed hyperlipidemia E78.2 ; Family history of diabetes mellitus Z83.3 ; Mild intermittent asthma without complication J45.20 ; High risk sexual behavior Z72.51 and Chest discomfort R07.89 [facility] [address] [place] [address] 83069- 3540 May, Cough variant asthma J45.991 [facility] [address] [address] Apr, Cough variant asthma J45.991 ; Cough R05 and Wheezing R06.2 [facility] [id number] [place] [address] 59467- 9162 Aug, [facility] [id number] [place] [address] 90866- 9609 Aug, Via [address] [id number] Apr [facility] [id number] [place] [address] 74686- 7013 Apr, [facility] [id number] [place] [address] 49137- 9264 Mar, [facility] [id number] [place] [address] 58024- 3004 Mar, [facility] [id number] [place] [address] 77529- 1370 Mar, [facility] [address] [place] [address] 27215- 0237 Mar, [facility] [id number] [place] [address] 92090- 6316 Mar, [facility] [id number] [place] [address] 05560- 6974 Mar, [facility] [id number] [place] [address] 49225- 9328 Mar, [facility] [address] [address]- 6484 Mar, [facility] [address] [id number] [place] [address]- 7134 Mar, [facility] [address] [id number] [place] [address]- 7232 Nov, [facility] [place] [facility] [address] [id number] [place] [address]- 7788 Nov, [facility] [address] [id number] [place] [address]- 6981 May, [facility] [place] [facility] [address] [id number] [place] [address]- 4205 May, [facility] [address] [id number] [place] [address]- 4151 May, [facility] [address] [id number] [place] [address]- 5689 Apr, [facility] [address] [id number] [place] [address]- 4370 Apr, [facility] [address] [id number] [place] [address]- 8260 Apr, [facility] [place] [facility] [address] [id number] [place] [address]- 0893 Apr, [facility] [address] [id number] [place] [address]- 4104 Dec, [facility] [place] [facility] [address] [id number] [place] [address]- 8953 Dec, [facility] [place] [facility] [address] [id number] [place] [address]- 9994 Dec, [facility] [place] [facility] [address] [id number] [place] [address]- 1486 Dec, [facility] [place] [facility] [address] [id number] [place] [address]- 7444 Dec, [facility] [place] [facility] [address] [id number] [place] [address]- 2286 Dec, [facility] [address] [id number] [place] [address]- 3439 Nov, [facility] [place] [facility] [address] [id number] [place] [address]- 6666 Nov, [facility] [place] [facility] [address] [id number] [place] [address]- 3498 Nov, [facility] [place] [facility] [address] [id number] [place] [address]- 3714 Nov, [facility] [address] [id number] [place] [address]- 0045 Oct, [facility] [place] [facility] [address] [id number] [place] [address]- 5648 Oct, [facility] [place] [facility] [address] [id number] [place] [address]- 1391 Aug, [facility] [place] [facility] [address] [id number] [place] [address]- 8916 Jul, [facility] [place] [facility] [address] [id number] [place] [address]- 8271 Jun, [facility] [place] [facility] [address] [id number] [place] [address]- 3482 May, [facility] [place] [facility] [address] [id number] [place] [address]- 8524 May, [facility] [place] [facility] [address] [id number] [place] [address]- 8634 May, [facility] [place] [facility] [address] [id number] [place] [address]- 5354 May, [facility] [place] [facility] [address] [id number] [place] [address]- 4138 Mar, [facility] [place] [facility] [address] [id number] [place] [address]- 2426 Mar, [facility] [place] [facility] [address] [id number] [place] [address]- 8139 Mar, [facility] [place] [facility] [address] [id number] [place] [address]- 1628 Mar, [facility] [place] [facility] [address] [id number] [place] [address]- 5057 Feb, [facility] [place] [facility] [address] [id number] [place] [address]- 7776 Feb, [facility] [place] [facility] [address] [id number] [place] [address]- 1766 Dec, [facility] [place] [facility] [address] [id number] [place] [address]- 9357 Oct, [facility] [place] [facility] [address] [facility] [id number] [place] [address]- 5346 September, [facility] [place] [facility] [address] [place] [address]- 8447 September, [facility] [place] [facility] [address] [id number] [place] [address]- 4438 Jul, [facility] [place] [facility] [address] [id number] [place] [address]- 3185 Jun, [facility] [place] [facility] [address] [place] [address]- 1946 Jun, [facility] [place] [facility] [address] [place] [address]- 2046 Jun, [facility] [place] [facility] [address] [facility] [id number] [place] [address]- 4956 Jun, [facility] [place] [facility] [address] [id number] [place] [address]- 7376 Jun, [facility] [place] [facility] [address] [facility] [id number] [place] [address]- 2546 May, [facility] [place] [facility] [address] [place] [address]- 7632 May, [facility] [id number] [address]- 2546 Apr, [facility] [id number] [address]- 2546 Apr, [facility] [id number] [address]- 2546 Dec, [facility] [address], [place] [address]- 2546 September, [facility] [address] [address]- 2286 Mar, [facility] [address] [address]- 2546 Feb, [facility] [address], [place] [address]- 2546 Feb, [facility] [address] [address]- 3076 Feb, [facility] [id number], [place] [address]- 7636 Jan, IMMUNIZATIONS No Known Immunizations SOCIAL HISTORY Never Assessed REASON FOR VISIT intake PLAN OF CARE Activity Details Follow Up next available Reason:anxiety VITAL SIGNS MEDICATIONS Medication Instructions Dosage Frequency Start Date End Date Duration Status Vitamin D-3 1000 UNIT Orally Once a day 1 capsule 24h Active Albuterol Sulfate 108 (90 Base) mcg/act Inhalation as directed 2 puffs by Inhalation route every 6 hours as needed PRN cough or wheezing Apr, Active Flax Seed Oil 1000 MG Active Fish Oil 1000 MG Orally 3 times a day 1 capsule 8h Active Albuterol Sulfate (2.5 MG/3ML) 0.083% Inhalation Three times a day 3 ml 8h Active ZyrTEC 10 mg by oral route Once a day 1 tablet 24h Oct, May, 30 days Active Vitamin B12 1000 MCG Orally Once a day 1 tablet 24h Active RESULTS No Results PROCEDURES Procedure Date Ordered Result Body Site Psych diagnostic evaluation, established patient Dec 21, 2017 INSTRUCTIONS MEDICATIONS ADMINISTERED No Known Medications MEDICAL (GENERAL) HISTORY Type Description Date Medical History asthma Medical History Left hip perthes Medical History History of Drug Abuse Clean Since 2009 Medical History Hyperlipidemia Medical History Depressive disorder, not elsewhere classified Surgical History Multiple orthopedic surgeries on hip, shoulder, and knee.
--- OUTSIDE RECORDS SUMMARY | 2018-09-11 21:07 | XMS REPORT ---
Author Author KATELIN VILLATORO Organization [facility] Address [address] [place] [address] Care Team Providers Care Audio Video Repairer Name Role Phone KATELIN VILLATORO Unavailable PROBLEMS Type Condition ICD9-CM Code WXL14-XD Code Onset Dates Condition Status SNOMED Code Problem Intermittent palpitations R00.2 Active 318939324 Problem Mixed hyperlipidemia E78.2 Active 868794351 Problem Chest discomfort R07.89 Active 202780509 Problem Mild intermittent asthma without complication J45.20 Active 378982200 Problem Family history of diabetes mellitus Z83.3 Active 336780981 Problem High risk sexual behavior Z72.51 Active 571703464 ALLERGIES No Information ENCOUNTERS Encounter Location Date Diagnosis [place] [address] [address]- [address]00 Jun, Chest discomfort R07.89 ; Intermittent palpitations R00.2 ; Dyspnea, unspecified type R06.00 and Family history of early CAD Z82.49 [place] [id number] [place] [address] 16077- 7697 May, [place] [id number] [place] [address] 94616- 3371 May, Mixed hyperlipidemia E78.2 ; Mild intermittent asthma without complication J45.20 ; Family history of early CAD Z82.49 ; Family history of protein S deficiency Z83.2 and Vitamin deficiency E56.9 [place] [address] 17574- 0488 Nov, [place] [address] 93794- 4382 Apr, Chest discomfort R07.89 and Intermittent palpitations R00.2 [place] [address] 65563- 0182 Mar, Chest pain, unspecified type R07.9 ; Dyspnea, unspecified type R06.00 ; Mixed hyperlipidemia E78.2 and Family history of early CAD Z82.49 [place] [address] 86222- 3579 Feb, Mixed hyperlipidemia E78.2 ; Chest discomfort R07.89 and Intermittent palpitations R00.2 [place] [address] 10431- 7180 Feb, [place] [address] 53113- 4161 Jan, [facility] [place] [address] [address]50 -6286 Nov, Candidiasis B37.9 [place] [address] 48060- 5884 September, Mixed hyperlipidemia E78.2 [place] [address] 01316- 9085 September, Mixed hyperlipidemia E78.2 ; Family history of diabetes mellitus Z83.3 ; Mild intermittent asthma without complication J45.20 ; High risk sexual behavior Z72.51 and Chest discomfort R07.89 [place] [address] 68439- 8758 May, Cough variant asthma J45.991 [facility] [address] [address] -4018 Apr, Cough variant asthma J45.991 ; Cough R05 and Wheezing R06.2 [place] [address] 95899- 1488 Aug, [place] [address] 88529- 5677 Aug, Via [facility] [address] [place] [id number] Apr [facility] [place] [facility] [address] [id number] [place] [address]- 7487 Apr, [facility] [place] [facility] [address] [id number] [place] [address]- 7624 Mar, [facility] [place] [facility] [address] [id number] [place] [address]- 1215 Mar, [facility] [place] [facility] [address] [id number] [place] [address]- 6547 Mar, [facility] [place] [facility] [address] [id number] [place] [address]- 2494 Mar, [facility] [place] [facility] [address] [id number] [place] [address]- 4734 Mar, [facility] [place] [facility] [address] [id number] [place] [address]- 2207 Mar, [facility] [place] [facility] [address] [id number] [place] [address]- 9544 Mar, [facility] [place] [facility] [address] [id number] [place] [address]- 0352 Mar, [facility] [place] [facility] [address] [id number] [place] [address]- 6730 Mar, [facility] [place] [facility] [address] [id number] [place] [address]- 9952 Nov, [facility] [place] [facility] [address] [id number] [place] [address]- 0504 Nov, [facility] [place] [facility] [address] [id number] [place] [address]- 5192 May, [facility] [place] [facility] [address] [id number] [place] [address]- 7227 May, [facility] [place] [facility] [address] [id number] [place] [address]- 7811 May, [facility] [place] [facility] [address] [id number] [place] [address]- 1167 Apr, [facility] [address] [id number] [place] [address]- 5461 Apr, [facility] [place] [facility] [address] [id number] [place] [address]- 8354 Apr, [facility] [place] [facility] [address] [id number] [place] [address] Apr, [facility] [place] [facility] [address] [id number] [place] [address]- 0110 Dec, [facility] [place] [facility] [address] [id number] [place] [address]- 7191 Dec, [facility] [place] [facility] [address] [id number] [place] [address]- 9000 Dec, [facility] [place] [facility] [address] [id number] [place] [address]- 0948 Dec, [facility] [place] [facility] [address] [id number] [place] [address]- 8597 Dec, [facility] [place] [facility] [address] [id number] [place] [address]- 1635 Dec, [facility] [place] [facility] [address] [id number] [place] [address]- 3044 Nov, [facility] [place] [facility] [address] [id number] [place] [address]- 7454 Nov, [facility] [place] [facility] [address] [id number] [place] [address]- 3926 Nov, [facility] [place] [facility] [address] [id number] [place] [address]- 6055 Nov, [facility] [place] [facility] [address] [id number] [place] 0956 Oct, [facility] [place] [facility] [address] [id number] [place] [address]- 6414 Oct, [facility] [place] [facility] [address] [id number] [place] [address]- 2075 Aug, [facility] [address] [id number] [place] [address]- 2021 Jul, [facility] [place] [facility] [address] [id number] [place] [address]- 2836 Jun, [facility] [place] [facility] [address] [id number] [place] [address]- 8726 May, [facility] [place] [facility] [address] [id number] [place] [address]- 9917 May, [facility] [place] [facility] [address] [id number] [place] [address]- 1371 May, [facility] [place] [facility] [address] [id number] [place] [address]- 9949 May, [facility] [place] [facility] [address] [id number] [place] [address]- 5386 Mar, [facility] [place] [facility] [address] [id number] [place] [address]- 8126 Mar, [facility] [place] [facility] [address] [id number] [place] [address]- 3516 Mar, [facility] [place] [facility] [address] [id number] [place] [address]- 3038 Mar, [facility] [place] [facility] [address] [id number] [place] [address]- 4433 Feb, [facility] [place] [facility] [address] [id number] [place] [address]- 4103 Feb, [facility] [place] [facility] [address] [id number] [place] [address]- 0436 Dec, [facility] [place] [facility] [address] [id number] [place] [address]- 2546 Oct, [facility] [place] [facility] [address] [id number] [place] [address]- 5616 September, [facility] [place] [facility] [address] [id number] [place] [address]- 2281 September, [facility] [place] [facility] [address] [id number] [place] [address]- 0815 Jul, [facility] [place] [facility] [address] [id number] [place] [address]- 1796 Jun, [facility] [place] [facility] [address] [id number] [place] [address]- 8665 Jun, [facility] [place] [facility] [address] [id number] [place] [address]- 6645 Jun, [facility] [place] [facility] [address] [id number] [place] [address]- 9216 Jun, [facility] [place] [facility] [address] [id number] [place] [address]- 8146 Jun, [facility] [place] [facility] [address] [id number] [place] [address]- 3152 May, [facility] [place] [facility] [address] [id number] [place] [address]- 2995 May, [facility] [place] [facility] [address] [id number] [place] [address]- 5672 Apr, [facility] [place] [facility] [address] [id number] [place] [address]- 7466 Apr, [facility] [place] [facility] [address] [id number] [place] [address]- 1803 Dec, [facility] [place] [facility] [address] [id number] [place] [address]- 5846 September, [facility] [place] [facility] [address] [id number] [place] [address]- 5299 Mar, [facility] [place] [facility] [address] [id number] [place] [address]- 1936 Feb, [facility] [place] [facility] [address] [facility] [id number] [place] [address]- 5118 18 Feb, 2010 [facility] [address] [facility] [id number] [address]68 14 Feb, 2010 [facility] [address] [facility] [place] [id number] [place], [place] [id number] 10 Jan, 2010 IMMUNIZATIONS No Known Immunizations SOCIAL HISTORY Never Assessed REASON FOR VISIT wanting lab results PLAN OF CARE VITAL SIGNS MEDICATIONS No Known Medications RESULTS No Results PROCEDURES No Known [...]
--- OUTSIDE RECORDS SUMMARY | 2018-09-11 21:07 | XMS REPORT ---
Author Author KATELIN VILLATORO [facility] eClinicalWorks Address Unknown Phone Unavailable Care Team Providers Care Unit Support Representative Name Role Phone KATELIN VILLATORO CP Unavailable Allergies No Known Allergies Problems Problem Type Condition Code Onset Dates Condition Status Problem Polyuria 788.42 Active Problem Cough R05 Active Problem Lateral epicondylitis of elbow 726.32 Active Problem Mixed hyperlipidemia E78.2 Active Problem Family history of diabetes mellitus Z83.3 Active Problem Intermittent palpitations R00.2 Active Problem Chest discomfort R07.89 Active Problem Cough variant asthma J45.991 Active Problem Mild intermittent asthma without complication J45.20 Active Problem High risk sexual behavior Z72.51 Active Problem Unspecified disorder of male genital organs 608.9 Active Problem Depressive disorder, not elsewhere classified 311 Active Problem Disturbance of skin sensation 782.0 Active Problem Pain in joint, shoulder region 719.41 Active Problem Family history of diabetes mellitus V18.0 Active Problem Insomnia, unspecified 780.52 Active Problem Pain in joint, site unspecified 719.40 Active Problem Pain in joint, hand 719.44 Active Problem Other malaise and fatigue 780.79 Active Medications No Known Medications Results No Known Results Summary Purpose eClinicalWorks Submission
--- OUTSIDE RECORDS SUMMARY | 2018-09-11 21:07 | XMS REPORT ---
Author Author KATELIN VILLATORO Organization [facility] Address [address] [place] [address] Care Team Providers Care Prison Teacher Name Role Phone KATELIN VILLATORO Unavailable PROBLEMS Type Condition ICD9-CM Code AEG16-AU Code Onset Dates Condition Status SNOMED Code Problem Intermittent palpitations R00.2 Active 323003717 Problem Mixed hyperlipidemia E78.2 Active 249704490 Problem Chest discomfort R07.89 Active 877143750 Problem Mild intermittent asthma without complication J45.20 Active 451574520 Problem Family history of diabetes mellitus Z83.3 Active 584145705 Problem High risk sexual behavior Z72.51 Active 287450651 ALLERGIES Substance Reaction Event Type Date Status Latex Unknown Drug Allergy May, Active Adhesive Tape Unknown Drug Allergy May, Active Morphine Sulfate Unknown Drug Allergy May, Active Iodine Unknown Drug Allergy May, Active Dilaudid Unknown Drug Allergy May, Active Demerol Unknown Drug Allergy May, Active Chocolate Flavor Unknown Drug Allergy May, Active ENCOUNTERS Encounter Location Date Diagnosis [id number] [place] [address] Jun, Chest discomfort R07.89 ; Intermittent palpitations R00.2 ; Dyspnea, unspecified type R06.00 and Family history of early CAD Z82.49 [facility] [id number] [place] [address]- [address]98 May, [place] [id number] [place] [address]- [address] May, Mixed hyperlipidemia E78.2 ; Mild intermittent asthma without complication J45.20 ; Family history of early CAD Z82.49 ; Family history of protein S deficiency Z83.2 and Vitamin deficiency E56.9 [place] [id number] [place] [address]- [address] 03 Nov, 2016 [place] [address] [address] Apr, Chest discomfort R07.89 and Intermittent palpitations R00.2 [place] [address] [address] Mar, Chest pain, unspecified type R07.9 ; Dyspnea, unspecified type R06.00 ; Mixed hyperlipidemia E78.2 and Family history of early CAD Z82.49 [place] [address] [address] Feb, Mixed hyperlipidemia E78.2 ; Chest discomfort R07.89 and Intermittent palpitations R00.2 [place] [address] [address] Feb, [place] [address] [address] Jan, [facility] [address] [address] Nov, Candidiasis B37.9 [place] [address] [address]- [address] September, Mixed hyperlipidemia E78.2 [place] [address] [place] [id number] [place] [address]- 1069 September, Mixed hyperlipidemia E78.2 ; Family history of diabetes mellitus Z83.3 ; Mild intermittent asthma without complication J45.20 ; High risk sexual behavior Z72.51 and Chest discomfort R07.89 [place] [address] [address]- [address] May, Cough variant asthma J45.991 [facility] [address] [place] [id number] [place] [address] Apr, Cough variant asthma J45.991 ; Cough R05 and Wheezing R06.2 [place] [address] [place] [id number] [place] [address] 14 Aug, 2014 [facility] [address] [id number] [place] [address] Aug, Via [facility] [address] [place] [id number] 10 Apr [facility] [address] [id number] [place] [address]- 48[address] Apr, [facility] [address] [id number] [place] [address]- 1104 Mar, [facility] [address] [id number] [place] [address]- 9045 Mar, [facility] [address] [id number] [place] [address]- 1378 Mar, [facility] [address] [id number] [place] [address]- 2422 Mar, [facility] [address] [id number] [place] [address]- 2283 Mar, [facility] [address] [id number] [place] [address]- 8866 Mar, [facility] [address] [id number] [place] [address]- 2602 Mar, [facility] [address] [id number] [place] [address]- 1893 Mar, [facility] [place] [facility] [address] [id number] [place] [address] 1319 Mar, [facility] [place] [facility] [address] [id number] [place] [address]- 2608 Nov, [facility] [place] [facility] [address] [id number] [place] [address]- 3668 Nov, [facility] [address] [id number] [place] [address]- 4577 May, [facility] [place] [facility] [address] [id number] [place] [address]- 6579 May, [facility] [address] [id number] [place] [address]- 6842 May, [facility] [place] [facility] [address] [id number] [place] [address]- 7951 Apr, [facility] [place] [facility] [address] [id number] [place] [address]- 0144 Apr, [facility] [place] [facility] [address] [id number] [place] [address]- 9423 Apr, [facility] [place] [facility] [address] [id number] [place] [address]- 7146 Apr, [facility] [place] [facility] [address] [id number] [place] [address]- 1657 Dec, [facility] [place] [facility] [address] [id number] [place] [address]- 6358 Dec, [facility] [place] [facility] [address] [id number] [place] [address]- 4230 Dec, [facility] [place] [facility] [address] [id number] [place] [address]- 2061 Dec, [facility] [place] [facility] [address] [id number] [place] [address]- 2840 Dec, [facility] [place] [facility] [address] [id number] [place] [address]- 2615 Dec, [facility] [place] [facility] [address] [id number] [place] [address]- 1573 Nov, [facility] [place] [facility] [address] [id number] [place] [address]- 2191 Nov, [facility] [place] [facility] [address] [id number] [place] [address]- 2546 Nov, [facility] [place] [facility] [address] [id number] [place] [address]- 3615 16 Nov, 2012 [facility] [place] [facility] [address] [id number] [place] [address]- 9507 Oct, [facility] [place] [facility] [address] [id number] [place] [address]- 5905 18 Oct, 2012 [facility] [place] [facility] [address] [id number] [place] [address]- 2098 Aug, [facility] [place] [facility] [address] [id number] [place] [address]- 1905 Jul, [facility] [place] [facility] [address] [id number] [place] [address]- 7577 Jun, [facility] [place] [facility] [address] [id number] [place] [address]- 5957 May, [facility] [place] [facility] [address] [id number] [place] [address]- 4187 May, [facility] [place] [facility] [address] [id number] [place] [address]- 1189 May, [facility] [place] [facility] [address] [id number] [place] [address]- 3902 May, [facility] [place] [facility] [address] [id number] [place] [address]- 2207 Mar, [facility] [place] [facility] [address] [id number] [address]- 09[address] Mar, [facility] [place] [facility] [address] [id number] [address]- 4523 Mar, [facility] [place] [facility] [address] [id number] [place] [address]- 5275 Mar, [facility] [place] [facility] [address] [id number] [place] [address]- 6170 Feb, [facility] [place] [facility] [address] [id number] [place] [address]- 8953 Feb, [facility] [place] [facility] [address] [id number] [place] [address]- 3446 Dec, [facility] [address] [id number] [place] [address]- 2586 Oct, [facility] [place] [facility] [address] [id number] [place] [address]- 1816 September, [facility] [address] [id number] [place] [address]- 8806 September, [facility] [place] [facility] [address] [id number] [place] [address]- 5056 Jul, [facility] [address] [id number] [place] [address]- 7406 Jun, [facility] [place] [facility] [address] [id number] [place] [address]- 2546 Jun, [facility] [place] [facility] [address] [id number] [place] [address]- 3456 Jun, [facility] [address] [id number] [place] [address]- 1246 Jun, [facility] [place] [facility] [address] [id number] [place] [address]- 3756 Jun, [facility] [address] [id number] [place] [address]- 4516 May, [facility] [place] [facility] [address] [id number] [place] [address]- 2546 May, [facility] [place] [facility] [address] [id number] [place] [address]- 2546 Apr, [facility] [place] [facility] [address] [id number] [place] [address]- 2546 Apr, [facility] [place] [facility] [address] [id number] [place] [address]- 2546 Dec, [facility] [place] [facility] [address] [id number] [place] [address]- 6366 September, [facility] [address] [facility] [id number] [address]- 9275 Mar, [facility] [address] [facility] [id number][place] [address]- 9536 Feb, [facility] [address] [facility] [id number][place] [address]- 5533 Feb, [facility] [address] [facility] [id number][place] [address]- 7529 Feb, [facility] [address] [facility] [id number][place] [address]- 8571 10 Jan, 2010 IMMUNIZATIONS No Known Immunizations SOCIAL HISTORY Never Assessed REASON FOR VISIT Wellness [id number], worried his asthma may be acting up, unable to locate inhaler PLAN OF CARE Activity Details Follow Up Dr. Beck 2 months Reason: VITAL SIGNS Height 68 in 2017-05-17 Weight 148.8 lbs 2017-05-17 Temperature 98.2 degrees Fahrenheit 2017-05-17 Heart Rate 72 bpm 2017-05-17 Respiratory Rate 18 2017-05-17 Oximetry 98 % 2017-05-17 BMI 22.62 kg/m2 2017-05-17 Blood pressure systolic 118 mmHg 2017-05-17 Blood pressure diastolic 74 mmHg 2017-05-17 MEDICATIONS Medication Instructions Dosage Frequency Start Date End Date Duration Status Fish Oil 1000 MG Orally 3 times a day 1 capsule 8h Active Albuterol Sulfate 108 (90 Base) mcg/act Inhalation as directed 2 puffs by Inhalation route every 6 hours as needed PRN cough or wheezing Apr, Active Vitamin B12 1000 MCG Orally Once a day 1 tablet 24h Active Flax Seed Oil 1000 MG Active Albuterol Sulfate (2.5 MG/3ML) 0.083% Inhalation Three times a day 3 ml 8h Active ZyrTEC 10 mg by oral route Once a day 1 tablet 24h Oct, May, 30 days Active RESULTS No Results PROCEDURES Procedure Date Ordered Result Body Site MEASURE BLOOD OXYGEN LEVEL May 17, 2017 LIPID PANEL May 17, 2017 VENIPUNCT, ROUTINE* May 17, 2017 VITAMIN B-12 May 17, 2017 COMPREHEN METABOLIC PANEL May 17, 2017 FIBRINOGEN TEST May 17, 2017 COMPLETE CBC W/AUTO DIFF WBC May 17, 2017 INSTRUCTIONS MEDICATIONS ADMINISTERED No Known Medications MEDICAL (GENERAL) HISTORY Type Description Date Medical History asthma Medical History Left hip perthes Medical History History of Drug Abuse Clean Since 2009 Medical History Hyperlipidemia Medical History Depressive disorder, not elsewhere classified Surgical History Multiple orthopedic surgeries on hip, shoulder, and knee.
--- OUTSIDE RECORDS SUMMARY | 2018-09-11 21:08 | XMS REPORT ---
Author ALINA Parra [facility] eClinicalWorks Address Unknown Phone Unavailable Care Team Providers Care Cleaning Specialist Name Role Phone ALINA DURAN CP Unavailable Allergies, Adverse Reactions, Alerts Substance Reaction Event Type Latex Info Not Available Drug Allergy Adhesive Tape Info Not Available Drug Allergy Morphine Sulfate Info Not Available Drug Allergy Iodine Info Not Available Drug Allergy Dilaudid Info Not Available Drug Allergy Demerol Info Not Available Drug Allergy Chocolate Flavor Info Not Available Drug Allergy Problems Problem Type Condition Code Onset Dates Condition Status Problem Other malaise and fatigue 780.79 Active Problem Lateral epicondylitis of elbow 726.32 Active Problem Polyuria 788.42 Active Problem Family history of diabetes mellitus Z83.3 Active Problem Mild intermittent asthma without complication J45.20 Active Problem Mixed hyperlipidemia E78.2 Active Problem Cough variant asthma J45.991 Active Problem Cough R05 Active Problem High risk sexual behavior Z72.51 Active Problem Chest discomfort R07.89 Active Problem Disturbance of skin sensation 782.0 Active Problem Unspecified disorder of male genital organs 608.9 Active Assessment Candidiasis B37.9 Active Problem Pain in joint, hand 719.44 Active Problem Pain in joint, shoulder region 719.41 Active Problem Depressive disorder, not elsewhere classified 311 Active Problem Family history of diabetes mellitus V18.0 Active Problem Insomnia, unspecified 780.52 Active Problem Pain in joint, site unspecified 719.40 Active Medications Medication Code System Code Instructions Start Date End Date Status Dosage ZyrTEC [facility] 0 10 mg Quantity Amount, Route, and Frequency October 24, 2012 take 1 tablet (10 mg) by oral route once daily Albuterol Sulfate [facility] [address]-21 (2.5 MG/3ML) 0.083% Inhalation Three times a day 3 ml Albuterol Sulfate [facility] [address]-49 90 mcg/actuation Inhalation as directed Apr 09, 2013 2 puffs by Inhalation route every 6 hours as needed PRN cough or wheezing Terbinafine HCl [facility] [address] 1 % Externally Once a day November 19, 2015 1 application to affected area Procedures Procedure Coding System Code Date Office Visit, Est Pt., Level 3 CPT-4 05775 November 19, 2015 Vital Signs Date/Time: November 19, 2015 Cardiac Monitoring Heart Rate 88 bpm Weight 200.6 lbs Height 68 in Blood Pressure Diastolic 78 mmHg Blood Pressure Systolic 126 mmHg Results No Known Results Summary Purpose eClinicalWorks Submission
--- OUTSIDE RECORDS SUMMARY | 2018-09-11 21:08 | XMS REPORT ---
Author Author KATELIN VILLATORO Organization [facility] Address [address] [place] [address] Care Team Providers Care Telegraphic Typewriter Installer Name Role Phone KATELIN VILLATORO Unavailable PROBLEMS Type Condition ICD9-CM Code [id number] Code Onset Dates Condition Status SNOMED Code Problem Intermittent palpitations R00.2 Active 849608994 Problem Mixed hyperlipidemia E78.2 Active 707746703 Problem Chest discomfort R07.89 Active 932295258 Problem Mild intermittent asthma without complication J45.20 Active 190020872 Problem Family history of diabetes mellitus Z83.3 Active 295851168 Problem High risk sexual behavior Z72.51 Active 628341394 ALLERGIES No Information ENCOUNTERS Encounter Location Date Diagnosis [place] [address] [address] Jun, Chest discomfort R07.89 ; Intermittent palpitations R00.2 ; Dyspnea, unspecified type R06.00 and Family history of early CAD Z82.49 [place] [address] [place] [id number] [place] [address] 3412 May, [place] [address] [place] [id number] [place] [address]252- 7432 May, Mixed hyperlipidemia E78.2 ; Mild intermittent asthma without complication J45.20 ; Family history of early CAD Z82.49 ; Family history of protein S deficiency Z83.2 and Vitamin deficiency E56.9 [place] [address] [address]- [address] Nov, [place] [address] [address]- 8278 Apr, Chest discomfort R07.89 and Intermittent palpitations R00.2 [place] [address] [address]- [address] Mar, Chest pain, unspecified type R07.9 ; Dyspnea, unspecified type R06.00 ; Mixed hyperlipidemia E78.2 and Family history of early CAD Z82.49 [place] [address] [address]- [address] Feb, Mixed hyperlipidemia E78.2 ; Chest discomfort R07.89 and Intermittent palpitations R00.2 [place] [address] [address]- [address] Feb, [place] [address] [address]- [address] Jan, [facility] [place] [address] [address] Nov, Candidiasis B37.9 [place] [address] 160[address]- 1452 September, Mixed hyperlipidemia E78.2 [place] [address] [address]- 7[address] September, Mixed hyperlipidemia E78.2 ; Family history of diabetes mellitus Z83.3 ; Mild intermittent asthma without complication J45.20 ; High risk sexual behavior Z72.51 and Chest discomfort R07.89 [place] [address] [address]- [address] May, Cough variant asthma J45.991 [facility] [address] [address] Apr, Cough variant asthma J45.991 ; Cough R05 and Wheezing R06.2 [place] [address] [address]- 9691 Aug, [place] [address] [address]- [address]166 Aug, [facility] [address] [place] [id number] Apr [facility] [place] [facility] [address] [id number] [place] [address]- 3960 Apr, [facility] [place] [facility] [address] [id number] [place] [address]- 1222 Mar, [facility] [place] [facility] [address] [id number] [place] [address]- 3845 Mar, [facility] [place] [facility] [address] [id number] [place] [address]- 2535 Mar, [facility] [place] [facility] [address] [id number] [place] [address]- 5026 Mar, [facility] [place] [facility] [address] [id number] [place] [address]- 4329 Mar, [facility] [place] [facility] [address] [id number] [place] [address]- 5362 Mar, [facility] [place] [facility] [address] [id number] [place] [address]- 6335 Mar, [facility] [place] [facility] [address] [id number] [place] [address]- 3508 Mar, [facility] [place] [facility] [address] [id number] [place] [address]- 4954 Mar, [facility] [place] [facility] [address] [id number] [place] [address]- 2287 Nov, [facility] [place] [facility] [address] [id number] [place] [address]- 3629 Nov, [facility] [place] [facility] [address] [id number] [place] [address]- 6117 May, [facility] [place] [facility] [address] [id number] [place] [address]- 4411 May, [facility] [place] [facility] [address] [id number] [place] [address]- 3226 May, [facility] [place] [facility] [address] [id number] [place] [address]- 8179 Apr, [facility] [address] [id number] [place] [address]- 5114 Apr, [facility] [place] [facility] [address] [id number] [place] [address]- 2924 Apr, [facility] [place] [facility] [address] [id number] [place] [address] Apr, [facility] [place] [facility] [address] [id number] [place] [address]- 8380 Dec, [facility] [place] [facility] [address] [id number] [place] [address]- 7524 Dec, [facility] [place] [facility] [address] [id number] [place] [address]- 3255 Dec, [facility] [place] [facility] [address] [id number] [place] [address]- 4969 Dec, [facility] [place] [facility] [address] [id number] [place] [address]- 0259 Dec, [facility] [place] [facility] [address] [id number] [place] [address]- 9565 Dec, [facility] [place] [facility] [address] [id number] [place] [address]- 0242 Nov, [facility] [place] [facility] [address] [id number] [place] [address]- 6519 Nov, [facility] [place] [facility] [address] [id number] [place] [address]- 4096 Nov, [facility] [place] [facility] [address] [id number] [place] [address]- 0186 Nov, [facility] [place] [facility] [address] [id number] [place] [address] Oct, [facility] [place] [facility] [address] [id number] [place] [address]- 1553 Oct, [facility] [place] [facility] [address] [id number] [place] [address]- 7919 Aug, [facility] [address] [id number] [place] [address]- 4117 Jul, [facility] [place] [facility] [address] [id number] [place] [address]- 0716 Jun, [facility] [place] [facility] [address] [id number] [place] [address]- 2746 May, [facility] [place] [facility] [address] [id number] [place] [address]- 2862 May, [facility] [place] [facility] [address] [id number] [place] [address]- 2649 May, [facility] [place] [facility] [address] [id number] [place] [address]- 0825 May, [facility] [place] [facility] [address] [id number] [place] [address]- 2326 Mar, [facility] [place] [facility] [address] [id number] [place] [address]- 5450 Mar, [facility] [place] [facility] [address] [id number] [place] [address]- 7027 Mar, [facility] [place] [facility] [address] [id number] [place] [address]- 5044 Mar, [facility] [place] [facility] [address] [id number] [place] [address]- 2725 Feb, [facility] [place] [facility] [address] [id number] [place] [address]- 1327 Feb, [facility] [place] [facility] [address] [id number] [place] [address]- 2156 Dec, [facility] [place] [facility] [address] [id number] [place] [address]- 2546 Oct, [facility] [place] [facility] [address] [id number] [place] [address]- 2357 September, [facility] [place] [facility] [address] [id number] [place] [address]- 9430 September, [facility] [place] [facility] [address] [id number] [place] [address]- 4417 Jul, [facility] [place] [facility] [address] [id number] [place] [address]- 2526 Jun, [facility] [place] [facility] [address] [id number] [place] [address]- 8520 Jun, [facility] [place] [facility] [address] [id number] [place] [address] Jun, [facility] [place] [facility] [address] [id number] [place] [address] Jun, [facility] [place] [facility] [address] [id number] [place] [address] Jun, [facility] [place] [facility] [address] [id number] [place] [address] May, [facility] [place] [facility] [address] [id number] [place] [address] May, [facility] [place] [facility] [address] [id number] [place] [address] Apr, [facility] [place] [facility] [address] [id number] [place] [address] Apr, [facility] [place] [facility] [address] [id number] [place] [address] Dec, [facility] [place] [facility] [address] [id number] [place] [address] September, [facility] [place] [facility] [address] [id number] [place] [address] Mar, [facility] [place] [facility] [address] [id number] [place] [address] Feb, [facility] [place] [facility] [address] [facility] [id number] [place] [address] 18 Feb, 2010 [facility] [address] [facility] [id number][place] [address] 14 Feb, 2010 [facility] [address] [facility] [id number] [place] [address] 10 Jan, 2010 IMMUNIZATIONS No Known Immunizations SOCIAL HISTORY Never Assessed REASON FOR VISIT request letter PLAN OF CARE VITAL SIGNS MEDICATIONS No [...]
--- OUTSIDE RECORDS SUMMARY | 2018-09-11 21:08 | XMS REPORT | Continuity of Care Document ---
Author Author [facility] Organization [facility] Address Unknown Phone Unavailable Care Team Providers Care Solids Control Technician Name Role Phone MAMIE WOODS DO PP Insurance Providers Payer Name Policy Number Subscriber Name Relationship Self Pay MccormackGenoveva Salma 01 Self / Same As Patient Advance Directives Directive Response Recorded Date Advance Directives N 01/23/13 2:46pm Health Care Power of Undercoat Sprayer N 01/23/13 2:46pm Organ Donor Y 01/23/13 2:46pm Problems No Known Problems or Medical conditions. Social History History Response Recorded Date/Time Alcohol Use Denies Use 01/23/13 2:46pm Recreational Drug Use N NONE SINCE LAST YEARS/WENT THROUGH REHAB 1 YEAR AGO 01/23/13 2:46pm Sexually Transmitted Disease N 01/23/13 2 :46pm Allergies, Adverse Reactions, Alerts Allergen Type Severity Reaction Last Updated Barbiturates Allergy 04/07/10 Iodine Allergy 04/07/10 Morphine Allergy 04/07/10 Adhesive Tape Allergy 04/07/10 Meperidine Allergy 04/07/10 Latex Allergy 04/07/10 OPIATES Allergy Unknown 04/07/10 Medications Medication Dose Units Route Sig Qty Days Diclofenac Sodium 75 Mg PO [albuterol nebulizer] 1 INH NEEDED Tramadol HCl (Ultram) 1 - 2 Tab PO Q4H PRN 40 Tramadol HCl (Ultram) 1 - 2 Tab PO Q4H PRN [alburtol inhaler] 2 Dose IH NEEDED Response Recorded Date/Time Status not known Unknown Results Test Date Result Interp. Ref. Range Fasting Glucose January 27, 2010 10:34am 480 93 - Glucose 1 Hour January 27, 2010 10:34am 4200 123 - Glucose 1/2 Hour January 27, 2010 10:34am 2580 108 - Glucose 2 Hour January 27, 2010 10:34am 7860 85 - Procedures Procedure Code Date SHOULDER ARTHROSCOPY/SURGERY 90912 MRSA Screen 04/06/10 Encounters Encounter Location Date/Time Departed Emergency Room [facility] 2:32pm
--- OUTSIDE RECORDS SUMMARY | 2018-09-11 21:08 | XMS REPORT ---
Author Author MELANIE HUIZAR Organization [facility] Address [address] [place] [address] Care Team Providers Care Samples And Repairs Preparer Name Role Phone MELANIE HUIZAR Unavailable PROBLEMS Type Condition ICD9-CM Code [id number] Code Onset Dates Condition Status SNOMED Code Problem Lateral epicondylitis of elbow 726.32 Active 804777102 Problem Cough variant asthma J45.991 Active 133900499 Problem Cough R05 Active 73736357 Problem Intermittent palpitations R00.2 Active 181392875 Assessment Chest discomfort R07.89 12 Apr, 2016 Active 036142991 Problem Mixed hyperlipidemia E78.2 Active 974325635 Problem High risk sexual behavior Z72.51 Active 066979787 Problem Chest discomfort R07.89 Active 114273056 Problem Family history of diabetes mellitus Z83.3 Active 720155627 Problem Mild intermittent asthma without complication J45.20 Active 246701746 Problem Depressive disorder, not elsewhere classified 311 Active 90545914 Problem Insomnia, unspecified 780.52 Active 421014583 Problem Disturbance of skin sensation 782.0 Active 026131241 Problem Unspecified disorder of male genital organs 608.9 Active 34110923 Problem Family history of diabetes mellitus V18.0 Active 163843824 Problem Pain in joint, site unspecified 719.40 Active 40807751 Problem Pain in joint, hand 719.44 Active 592424201 Problem Other malaise and fatigue 780.79 Active 941554735 Problem Pain in joint, shoulder region 719.41 Active 523575523 Problem Polyuria 788.42 Active 37057139 ALLERGIES Unknown Allergies SOCIAL HISTORY No smoking Hx information available PLAN OF CARE Activity Details Pending Test Exercise Stress Nuclear Test Pending Test Echo 2D ,Reason: VITAL SIGNS MEDICATIONS Unknown Medications RESULTS Name Result Date Reference Range Exercise Stress Nuclear Test 2016-06-02 Echo 2D 2016-06-02 PROCEDURES No Known procedures IMMUNIZATIONS No Known Immunizations
--- OUTSIDE RECORDS SUMMARY | 2018-09-11 21:08 | XMS REPORT ---
Author Author ANGELINE JONES [employer] Address Unknown Phone Unavailable Care Team Providers Care Habilitation Specialist Name Role Phone ANGELINE JONES CP Unavailable Allergies, Adverse Reactions, Alerts Substance [...] Condition Code Onset Dates Condition Status Problem Insomnia, unspecified 780.52 Active Problem Pain in joint, shoulder region 719.41 Active Problem Pain in joint, hand 719.44 Active Problem Cough R05 Active Problem Lateral epicondylitis of elbow 726.32 Active Problem Cough variant asthma J45.991 Active Problem Pain in joint, site unspecified 719.40 Active Problem Family history of diabetes mellitus V18.0 Active Problem Polyuria 788.42 Active Problem Other malaise and fatigue 780.79 Active Assessment Cough variant asthma J45.991 Active Problem Disturbance of skin sensation 782.0 Active Assessment Wheezing R06.2 Active Problem Unspecified disorder of male genital organs 608.9 Active Assessment Cough R05 Active Problem Depressive disorder, not elsewhere classified 311 Active Medications Medication Code System Code Instructions Start Date End Date Status Dosage Singulair [facility] [address]-39 10 MG Orally Once a day May 07, 2015 1 tablet in the evening Symbicort [facility] [address]-91 80-4.5 MCG/ACT Inhalation Twice a day May 07, 2015 August 05, 2015 2 puffs ZyrTEC ND 0 10 mg Quantity Amount, Route, and Frequency October 24, 2012 take 1 tablet (10 mg) by oral route once daily Albuterol Sulfate [facility] [address]-71 90 mcg/actuation Apr 09, 2013 2 puffs by Inhalation route every 6 hours as needed PRN cough or wheezing Albuterol Sulfate [facility] [address]-67 (2.5 MG/3ML) 0.083% Inhalation Three times a day 3 ml Procedures Procedure Coding System Code Date Office Visit, Est Pt., Level 3 CPT-4 03468 May 07, 2015 CHEST X-RAY CPT-4 98902 May 07, 2015 Vital Signs Date/Time: May 07, 2015 Temperature 98. F Weight 202.8 lbs Height 68 in BMI 30.83 Index Blood Pressure Diastolic 72 mmHg Blood Pressure Systolic 118 mmHg Cardiac Monitoring Heart Rate 76 bpm Results No Known Results Summary Purpose [employer]Works Submission
--- OUTSIDE RECORDS SUMMARY | 2018-09-11 21:08 | XMS REPORT ---
Author Author MELISSA FERREIRA [facility] [place] e[employer] Address Unknown Phone Unavailable Care Team Providers Care Fruit And Vegetable Parer Name Role Phone MELISSA FERREIRA CP Unavailable Allergies, Adverse Reactions, Alerts Substance [...] Instructions Start Date End Date Status Dosage PredniSONE [facility] [address]-89 20 MG Orally Once a day Jun 02, 2015 2 qd 7 d, 1 qd 3 d Singulair [facility] [address]-19 10 MG Orally Once a day May 07, 2015 1 tablet in the evening Albuterol Sulfate [facility] [address]-34 (2.5 MG/3ML) 0.083% Inhalation Three times a day 3 ml Albuterol Sulfate [facility] [address]-05 90 mcg/actuation Apr 09, 2013 2 puffs by Inhalation route every 6 hours as needed PRN cough or wheezing ZyrTEC ND 0 10 mg Quantity Amount, Route, and Frequency October 24, 2012 take 1 tablet (10 mg) by oral route once daily Symbicort [facility] [address]-50 80-4.5 MCG/ACT Inhalation Twice a day May 07, 2015 2 puffs Procedures Procedure Coding System Code Date Office Visit, Shawn Pt., Level 3 CPT-4 29842 Jun 02, 2015 Vital Signs Date/Time: Jun 02, 2015 Temperature 98.7 F Weight 204.6 lbs Height 68 in BMI 31.11 Index Blood Pressure Diastolic 78 mmHg Blood Pressure Systolic 112 mmHg Cardiac Monitoring Heart Rate 80 bpm Results No Known Results Summary Purpose eClinicalWorks Submission
--- OUTSIDE RECORDS SUMMARY | 2018-09-11 21:08 | XMS REPORT ---
Author Author KATELIN VILLATORO [facility] e[employer] Address Unknown Phone Unavailable Care Team Providers Care Drafter Topographical Name Role Phone KATELIN VILLATORO CP Unavailable Allergies, Adverse Reactions, Alerts Substance [...] 726.32 Active Problem Mixed hyperlipidemia E78.2 Active Assessment Chest discomfort R07.89 Active Problem Family history of diabetes mellitus Z83.3 Active Assessment Intermittent palpitations R00.2 Active Problem Intermittent palpitations R00.2 Active Problem Chest discomfort R07.89 Active Problem Cough variant asthma J45.991 Active Problem Mild intermittent asthma without complication J45.20 Active Problem High risk sexual behavior Z72.51 Active Problem Unspecified disorder of male genital organs 608.9 Active Problem Depressive disorder, not elsewhere classified 311 Active Assessment Mixed hyperlipidemia E78.2 Active Problem Disturbance of skin sensation 782.0 Active Problem Pain in joint, shoulder region 719.41 Active Problem Family history of diabetes mellitus V18.0 Active Problem Insomnia, unspecified 780.52 Active Problem Pain in joint, site unspecified 719.40 Active Problem Pain in joint, hand 719.44 Active Problem Other malaise and fatigue 780.79 Active Medications Medication Code System Code Instructions Start Date End Date Status Dosage Albuterol Sulfate [facility] [address]-31 90 mcg/actuation Inhalation as directed Apr 09, 2013 2 puffs by Inhalation route every 6 hours as needed PRN cough or wheezing Albuterol Sulfate [facility] [address]-42 (2.5 MG/3ML) 0.083% Inhalation Three times a day 3 ml Flax Seed Oil [facility] [address] 1000 [place] [address]-30 1000 MG Orally 3 times a day 1 capsule ZyrTEC NDC 0 10 mg Quantity Amount, Route, and Frequency October 24, 2012 take 1 tablet (10 mg) by oral route once daily Procedures Procedure Coding System Code Date COMPREHEN METABOLIC PANEL CPT-4 49366 Feb 10, 2016 ASSAY THYROID STIM HORMONE CPT-4 04733 Feb 10, 2016 ASSAY OF MAGNESIUM CPT-4 26336 Feb 10, 2016 COMPLETE CBC W/AUTO DIFF WBC CPT-4 08571 Feb 10, 2016 ELECTROCARDIOGRAM, TRACING CPT-4 76772 Feb 10, 2016 Office Visit, Est Pt., Level 4 CPT-4 45899 Feb 10, 2016 VENIPUNCT, ROUTINE* CPT-4 28973 Feb 10, 2016 Vital Signs Date/Time: Feb 10, 2016 Cardiac Monitoring Heart Rate 60 bpm Weight 200 lbs Height 68 in BMI 30.41 Index Blood Pressure Diastolic 78 mmHg Blood Pressure Systolic 134 mmHg Results Name Result Date Reference Range Unit Abnormality Flag TSH ----TSH 1.770 03129299 0.450-4.500 uIU/mL CBC ----Basos 0 52847823 % ----MCV 90 60407834 79-97 fL ----Hematocrit 44.6 60896679 37.5-51.0 % ----Eos 6 28391682 % ----MCHC 34.1 71900094 31.5-35.7 g/dL ----Monocytes 9 49868464 % ----MCH 30.7 91848467 26.6-33.0 pg ----Lymphs 29 29103352 % ----Eos (Absolute) 0.6 82490910 0.0-0.4 x10E3/uL H ----WBC 9.2 45189719 3.4-10.8 x10E3/uL ----Monocytes(Absolute) 0.8 89226822 0.1-0.9 x10E3/uL ----Lymphs (Absolute) 2.6 70894048 0.7-3.1 x10E3/uL ----Hemoglobin 15.2 99199241 12.6-17.7 g/dL ----Neutrophils (Absolute) 5.1 17974900 1.4-7.0 x10E3/uL ----RBC 4.95 04414072 4.14-5.80 x10E6/uL ----Immature Grans (Abs) 0.0 23864836 0.0-0.1 x10E3/uL ----Immature Granulocytes 0 06588999 % ----Neutrophils 56 52283162 % ----Baso (Absolute) 0.0 45935869 0.0-0.2 x10E3/uL ----RDW 13.4 56962769 12.3-15.4 % ----Platelets 277 57190281 150-379 x10E3/uL ROUTINE VENIPUNCTURE MAGNESIUM, SERUM ----Magnesium, Serum 1.9 86660289 1.6-2.3 mg/dL CMP ----Potassium, Serum 4.3 42973509 3.5-5.2 mmol/L ----Sodium, Serum 142 09027395 134-144 mmol/L ----BUN/Creatinine Ratio 14 01928966 8-19 ----eGFR If Africn Am 137 18399478 >59 mL/min/1.73 ----eGFR If NonAfricn Am 118 95168192 >59 mL/min/1.73 ----Creatinine, Serum 0.91 87951764 0.76-1.27 mg/dL ----BUN 13 92451005 6-20 mg/dL ----Glucose, Serum 91 48384614 65-99 mg/dL ----AST (SGOT) 38 04943196 0-40 IU/L ----Globulin, Total 2.0 79465635 1.5-4.5 g/dL ----ALT (SGPT) 67 21933483 0-44 IU/L H ----A/G Ratio 2.3 61044776 1.1-2.5 ----Bilirubin, Total 0.4 83817184 0.0-1.2 mg/dL ----Alkaline Phosphatase, S 77 19877531 39-117 IU/L ----Carbon Dioxide, Total 24 50478251 18-29 mmol/L ----Calcium, Serum 9.3 19216507 8.7-10.2 mg/dL ----Protein, Total, Serum 6.5 20160210 6.0-8.5 g/dL ----Albumin, Serum 4.5 20160210 3.5-5.5 g/dL ----Chloride, Serum 101 20160210 97-108 mmol/L EKG, TRACING (IN-HOUSE) Summary Purpose eClinicalWorks Submission
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
[2018-09-11 21:18] LABS: BASOPHILS % (AUTO) 1 % (0-10); EOSINOPHILS # (AUTO) 0.2 10^3/uL (0.0-0.3); EOSINOPHILS % (AUTO) 7 % (0-10); HEMATOCRIT 40 % (40-54); HEMOGLOBIN 14.7 G/DL (13.3-17.7); LYMPHOCYTES # (AUTO) 1.2 X 10^3 (1.0-4.0); LYMPHOCYTES % (AUTO) 39 % (12-44); MEAN CORPUSCULAR HEMOGLOBIN 32 PG (25-34); MEAN CORPUSCULAR HGB CONC 37 G/DL (32-36); MEAN CORPUSCULAR VOLUME 88 FL (80-99); MEAN PLATELET VOLUME 9.7 FL (7.4-10.4); MONOCYTES # (AUTO) 1.2 X 10^3 (0.0-1.0); MONOCYTES % (AUTO) 38 % (0-12); NEUTROPHILS # (AUTO) 0.5 X 10^3 (1.8-7.8); NEUTROPHILS % (AUTO) 15 % (42-75); PLATELET COUNT 176 10^3/uL (130-400); RED CELL DISTRIBUTION WIDTH 11.8 % (10.0-14.5); WHITE BLOOD COUNT 3.2 10^3/uL (4.3-11.0)
[2018-09-11 21:19] LABS: BILIRUBIN,URINE NEGATIVE (NEGATIVE); CLARITY,URINE CLEAR; COLOR,URINE YELLOW; GLUCOSE, URINE (UA) NEGATIVE (NEGATIVE); KETONES,URINE NEGATIVE (NEGATIVE); LEUKOCYTE ESTERASE ,URINE NEGATIVE (NEGATIVE); NITRITE,URINE NEGATIVE (NEGATIVE); PH,URINE 7 (5-9); PROTEIN,URINE NEGATIVE (NEGATIVE); UROBILINOGEN,URINE NORMAL (NORMAL)
--- NOTE | 2018-09-11 21:22 | ED GU-Male ---
General Stated Complaint: R SIDE/LOWER BACK PAIN/CHILLS Source: patient Exam Limitations: no limitations History of Present Illness Date Seen by Provider: September 11, 2018 Time Seen by Provider: 21:23 Initial Comments To ER with right flank pain since 9 PM last night associated with vomiting 1 today, chills and frequent urination. Timing/Duration: yesterday Severity/Quality: moderate Location: right flank Radiation: none Prior Genitourinary Problems: none Associated Symptoms: No abdominal pain; fever/chills, lower back pain, nausea/ vomiting, urinary frequency Allergies and Home Medications Allergies Coded Allergies: Barbiturates (Unverified Allergy, 04/07/10) adhesive tape (Unverified Allergy, 04/07/10) iodine (Unverified Allergy, 04/07/10) latex (Unverified Allergy, 04/07/10) meperidine (Unverified Allergy, 04/07/10) morphine (Unverified Allergy, 04/07/10) Uncoded Allergies: OPIATES (Allergy, Unknown, 04/07/10) Home Medications Amoxicillin 500 Mg Capsule, 2 EACH PO Q8HR Prescribed by: MARTHA PONCE on 05/15/132310 Cetirizine Hcl 10 Mg Tablet, 10 MG PO DAILY, (Reported) Ondansetron 8 Mg Tab, 8 MG PO Q6H PRN for NAUSEA/VOMITING Prescribed by: MARTHA PONCE on 05/15/132310 [albuterol nebulizer] , 1 INH NEEDED, (Reported) Patient Home Medication List Home Medication List Reviewed: Yes Review of Systems Review of Systems Constitutional: see HPI, chills EENTM: see HPI Respiratory: no symptoms reported Cardiovascular: no symptoms reported Genitourinary: see HPI, frequency, flank pain Musculoskeletal: see HPI, back pain Skin: no symptoms reported Psychiatric/Neurological: No Symptoms Reported Endocrine: No Symptoms Reported Past Ompdkup-Zxzoks-Kxkvxr Hx Patient Social History Recent Foreign Travel: No Contact w/Someone Who Travel: No Past Medical History Asthma Reproductive Disorders: No Sexually Transmitted Disease: No Family Medical History No Pertinent Family Hx Physical Exam Vital Signs Vital Signs - First Documented 09/11/18 21:05 Temp 96.9 Pulse 77 Resp 18 B/P (MAP) 126/86 (99) Pulse Ox 99 O2 Delivery Room Air Capillary Refill : Height, Weight, BMI Height: '" Weight: 165lbs. oz. 74.296109jo; BMI Method:Stated General Appearance: WD/WN, no apparent distress HEENT: PERRL/EOMI, normal ENT inspection Neck: non-tender, full range of motion Cardiovascular: regular rate, rhythm, no murmur Respiratory: normal breath sounds, no respiratory distress, no accessory muscle use Gastrointestinal: normal bowel sounds, non tender, soft Back: CVA tenderness (R) Neurologic/Psychiatric: alert, normal mood/affect, oriented x 3 Skin: normal color, warm/dry Progress/Results/Core Measures Suspected Sepsis SIRS Temperature: Pulse: Respiratory Rate: Laboratory Tests 09/11/18 21:10: White Blood Count 3.2L Blood Pressure / Mean: Laboratory Tests 09/11/18 21:10: Creatinine 0.96, Platelet Count 176, Total Bilirubin 0.8 Results/Orders Lab Results Laboratory Tests Test 09/11/18 21:10 Range/Units White Blood Count 3.2 L 4.3-11.0 10^3/uL Red Blood Count 4.58 4.35-5.85 10^6/uL Hemoglobin 14.7 13.3-17.7 G/DL Hematocrit 40 40-54 % Mean Corpuscular Volume 88 80-99 FL Mean Corpuscular Hemoglobin 32 25-34 PG Mean Corpuscular Hemoglobin Concent 37 H 32-36 G/DL Red Cell Distribution Width 11.8 10.0-14.5 % Platelet Count 176 130-400 10^3/uL Mean Platelet Volume 9.7 7.4-10.4 FL Neutrophils (%) (Auto) 15 L 42-75 % Lymphocytes (%) (Auto) 39 12-44 % Monocytes (%) (Auto) 38 H 0-12 % Eosinophils (%) (Auto) 7 0-10 % Basophils (%) (Auto) 1 0-10 % Neutrophils # (Auto) 0.5 L 1.8-7.8 X 10^3 Lymphocytes # (Auto) 1.2 1.0-4.0 X 10^3 Monocytes # (Auto) 1.2 H 0.0-1.0 X 10^3 Eosinophils # (Auto) 0.2 0.0-0.3 10^3/uL Basophils # (Auto) 0.0 0.0-0.1 10^3/uL Neutrophils % (Manual) 28 % Lymphocytes % (Manual) 48 % Monocytes % (Manual) 16 % Eosinophils % (Manual) 7 % Basophils % (Manual) 1 % Band Neutrophils 0 % Blood Morphology Comment NORMAL Urine Color YELLOW Urine Clarity CLEAR Urine pH 7 5-9 Urine Specific [place] 1.010 L 1.016-1.022 Urine Protein NEGATIVE NEGATIVE Urine Glucose (UA) NEGATIVE NEGATIVE Urine Ketones NEGATIVE NEGATIVE Urine Nitrite NEGATIVE NEGATIVE Urine Bilirubin NEGATIVE NEGATIVE Urine Urobilinogen NORMAL NORMAL MG/DL Urine Leukocyte Esterase NEGATIVE NEGATIVE Urine RBC (Auto) NEGATIVE NEGATIVE Urine RBC NONE /HPF Urine WBC 0-2 /HPF Urine Crystals NONE /LPF Urine Bacteria NEGATIVE /HPF Urine Casts NONE /LPF Urine Mucus NEGATIVE /LPF Urine Culture Indicated NO Sodium Level 141 135-145 MMOL/L Potassium Level 3.8 3.6-5.0 MMOL/L Chloride Level 106 98-107 MMOL/L Carbon Dioxide Level 26 21-32 MMOL/L Anion Gap 9 5-14 MMOL/L Blood Urea Nitrogen 13 7-18 MG/DL Creatinine 0.96 0.60-1.30 MG/DL Estimat Glomerular Filtration Rate > 60 BUN/Creatinine Ratio 14 Glucose Level 81 70-105 MG/DL Calcium Level 9.7 8.5-10.1 MG/DL Corrected Calcium 9.4 8.5-10.1 MG/DL Total Bilirubin 0.8 0.1-1.0 MG/DL Aspartate Amino Transf (AST/SGOT) 58 H 5-34 U/L Alanine Aminotransferase (ALT/SGPT) 90 H 0-55 U/L Alkaline Phosphatase 58 40-136 U/L Total Protein 6.6 6.4-8.2 GM/DL Albumin 4.4 3.2-4.5 GM/DL My Orders Orders - INGRID HORVATH APRN Ua Culture If Indicated (09/11/18 21:02) Cbc With Automated Diff (09/11/18 21:02) Comprehensive Metabolic Panel (09/11/18 21:02) Ed Iv/Invasive Line Start (09/11/18 21:02) Ct Abd/Pelvis Wo(Kidney Stone) (09/11/18 21:02) Ns Iv 1000 Ml (Sodium Chloride 0.9%) (09/11/18 21:15) Manual Differential (09/11/18 21:10) Hs C Reactive Protein (09/11/18 21:44) Vital Signs/I&O 5/6/19 21:05 Temp 96.9 Pulse 77 Resp 18 B/P (MAP) 126/86 (99) Pulse Ox 99 O2 Delivery Room Air Capillary Refill : Diagnostic Imaging Diagonstic Imaging: CT Comments NAME: GENOVEVA MCCORMACK [facility] REC#: [id number] PT STATUS: REG ER : 1990 PHYSICIAN: INGRID HORVATH APRN ADMIT DATE: 09/11/18/ER Draft Date of Exam:09/11/18 CT ABD/PELVIS WO(KIDNEY STONE) PROCEDURE: CT urinary tract, rule out kidney stone. TECHNIQUE: Multiple contiguous axial images were obtained through the abdomen and pelvis without the use of intravenous contrast. Auto Exposure Controls were utilized during the CT exam to meet ALARA standards for radiation dose reduction. INDICATION: Back pain and nausea with emesis Unenhanced images of the liver and spleen are unremarkable. No gallbladder, pancreatic, adrenal gland or renal abnormalities identified apart from an approximately 1.3 cm cyst in the anterior aspect of the right kidney. There is no evidence of urinary tract calculus or obstruction. Mildly prominent mesenteric lymph nodes are seen. No appendiceal inflammation is identified. There is no evidence of bladder stone. No free fluid is seen within the pelvis. There is no evidence of pathologic adenopathy. IMPRESSION: No CT evidence of acute abnormality. In particular, there is no evidence of urinary tract calculus or obstruction. Dictated on workstation # [id number] Dict: 09/11/18 2138 Trans: 09/11/18 2144 COUNTS INCLUDE 234 BEDS AT THE [facility] [id number] Interpreted by: NACHO LEONE MD Electronically signed by: Departure Impression Primary Impression: Elevated liver function tests Additional Impressions: Right flank pain mild neutropenia Disposition: 01 HOME, SELF-CARE Condition: Stable Departure-Patient Inst. Decision time for Depature: 21:45 Referrals: ANIA MCGHEE APRN, MARK D MD CRANSTON, HOLLY A MD MARTIN, GRETCHEN L PA NO,LOCAL PHYSICIAN (PCP) Primary Care Physician ROSEANNA FERRARA CHAD C MD Patient Instructions: Flank Pain, Neutropenia (DC) Add. Discharge Instructions: 1. Your liver enzymes, (AST and ALT) were slightly elevated. Your white blood cell count was slightly low at 3.2. This could simply relate to a viral illness which is also causing your chills and muscle pain in the back, but does warrant follow-up from primary care. I've listed a couple of local primary care providers for you to follow-up with. I would call one of them tomorrow to make an appointment to be seen for follow-up, preferably this week if possible. INGRID HORVATH AUTOMOTIVE PARTS MANAGER September 11, 2018 21:22
[2018-09-11 21:37] LABS: BACTERIA,URINE NEGATIVE /HPF; WBC,URINE 0-2 /HPF
[2018-09-11 21:41] LABS: ALANINE AMINOTRANSFERASE 90 U/L (0-55); ALBUMIN 4.4 GM/DL (3.2-4.5); ALKALINE PHOSPHATASE 58 U/L (40-136); BILIRUBIN,TOTAL 0.8 MG/DL (0.1-1.0); BUN/CREATININE RATIO 14; CALCIUM 9.7 MG/DL (8.5-10.1); CARBON DIOXIDE 26 MMOL/L (21-32); CHLORIDE 106 MMOL/L (98-107); CREATININE SERUM 0.96 MG/DL (0.60-1.30); GFR ESTIMATED > 60; GLUCOSE 81 MG/DL (70-105); POTASSIUM 3.8 MMOL/L (3.6-5.0); SODIUM 141 MMOL/L (135-145); TOTAL PROTEIN 6.6 GM/DL (6.4-8.2)
[2018-09-11] MEDS: NS IV 1000 ML 1,000 ML IV SCH ×2 (21:42→22:10)
--- NOTE | 2018-09-11 21:44 | Diagnostic Imaging Report ---
PROCEDURE: CT urinary tract, rule out kidney stone. TECHNIQUE: Multiple contiguous axial images were obtained through the abdomen and pelvis without the use of intravenous contrast. Auto Exposure Controls were utilized during the CT exam to meet ALARA standards for radiation dose reduction. INDICATION: Back pain and nausea with emesis Unenhanced images of the liver and spleen are unremarkable. No gallbladder, pancreatic, adrenal gland or renal abnormalities identified apart from an approximately 1.3 cm cyst in the anterior aspect of the right kidney. There is no evidence of urinary tract calculus or obstruction. Mildly prominent mesenteric lymph nodes are seen. No appendiceal inflammation is identified. There is no evidence of bladder stone. No free fluid is seen within the pelvis. There is no evidence of pathologic adenopathy. IMPRESSION: No CT evidence of acute abnormality. In particular, there is no evidence of urinary tract calculus or obstruction. Dictated by: Dictated on workstation # [id number]
[2018-09-11 21:47] LABS: BAND NEUTROPHILS 0 %; BASOPHILS % (MANUAL) 1 %; EOSINOPHILS % (MANUAL) 7 %; LYMPHOCYTES % (MANUAL) 48 %; MONOCYTES % (MANUAL) 16 %; NEUTROPHILS % (MANUAL) 28 %; RBC MORPH NORMAL
[2018-09-11 22:07] VITALS: BP 122/78
== END 2018-09-11 22:11 | disposition home or self-care (01) ==
LOC: EDUNIT# 21:00 → ER 21:01
DX: R94.5 Abnormal results of liver function studies (principal); R10.30 Lower abdominal pain, unspecified; D70.9 Neutropenia, unspecified; J45.909 Unspecified asthma, uncomplicated; Z88.8 Allergy status to other drugs, medicaments and biological substances; Z91.048 Other nonmedicinal substance allergy status; Z91.041 Radiographic dye allergy status; Z88.5 Allergy status to narcotic agent
CPT/HCPCS: 36415; 74176; 80053; 81000; 85007; 85027; 86141

== ENCOUNTER 2019-11-29 05:38 | Outpatient (RCR) | payer OTHER ==
[~2019-11-29] VITALS: Ht 172 cm; Wt 81.8 kg
[~2019-11-29 05:38] MED LIST changes: +ESCI5TAB PO
== END 2019-11-29 12:35 | disposition home or self-care (01) ==
LOC: PREOP 05:38
PROVIDERS: ATTEND Podiatrist Foot & Ankle Surgery
DX: Z01.812 Encounter for preprocedural laboratory examination (principal); Z20.828 Contact with and (suspected) exposure to other viral communicable diseases; M20.22 Hallux rigidus, left foot
CPT/HCPCS: 87635

== ENCOUNTER 2019-12-03 07:34 | Day surgery (SDC) | payer BC, OTHER ==
[~2019-12-03] VITALS: Ht 172 cm; Wt 81.8 kg
[2019-12-03] VITALS (10 sets, daily range): BP systolic 94–117; BP diastolic 45–77
[2019-12-03] MEDS ORDERED: ceFAZolin INJECTION 1,000 MG in WATER (STERILE) FOR INJECTION 10 ML IV ONE (08:00)
[2019-12-03] MEDS: LACTATED RINGERS 1,000 ML IV PRN ×2 (08:24→09:43)
[2019-12-03] MEDS ORDERED: MIDAZOLAM 2 MG/2 ML (VERSED) VIAL ONE (08:30)
[2019-12-03] MEDS ORDERED: BUPIVACAINE 0.5% 30 ML (SENSORCAINE) VIAL ONE (08:56)
[2019-12-03] MEDS ORDERED: ONDANSETRON 4 MG/2 ML (SDV) Z0FRAN ONE (09:04)
[2019-12-03] MEDS ORDERED: proPOfol 200 MG/20 ML (DIPRIVAN) VIAL IV ONE (09:04)
[2019-12-03] MEDS ORDERED: LIDOCAINE PF 2% 5 ML (XYLOCAINE) VIAL ONE (09:04)
[2019-12-03] MEDS ORDERED: SEVOFLURANE (ULTANE) 15 ML INHAL SOLN ONE ×2 (09:05→10:02)
--- NOTE | 2019-12-03 09:12 | Progress Note-Pre Operative ---
Pre-Operative Progress Note H&P Reviewed The H&P was reviewed, patient examined and no changes noted. Date Seen by Provider: Dec 03, 2019 Time Seen by Provider: 09:11 Date H&P Reviewed: Dec 03, 2019 Time H&P Reviewed: 09:11 Pre-Operative Diagnosis: Hallux Rigidus, left NATHAN LUND DPM Dec 03, 2019 09:12
[2019-12-03] MEDS ORDERED: BACITRACIN OINTMENT 28 GM TUBE ONE (09:53)
[2019-12-03] MEDS ORDERED: LACTATED RINGERS 1,000 ML IV SCH (10:09)
--- NOTE | 2019-12-03 10:09 | Progress Note-Post Operative ---
Post-Operative Progess Note Surgeon (s)/Inflated Pad Buffer (s) Surgeon NATHAN LUND DPM Inflated Pad Buffer: none Pre-Operative Diagnosis Hallux Rigidus, left Post-Operative Diagnosis Same Procedure & Operative Findings Date of Procedure 12/03/19 Procedure Performed/Findings Cheilectomy, left Anesthesia Type General Estimated Blood Loss Estimated blood loss (mL): Minimal Specimens/Packing Specimens Removed none NATHAN LUND DPM Dec 03, 2019 10:09
[2019-12-03] MEDS ORDERED: ONDANSETRON 4 MG/2 ML (SDV) Z0FRAN IVP PRN (10:15)
--- NOTE | 2019-12-03 10:15 | Anesthesia-General Post-Op ---
General Patient Condition Mental Status/LOC: Same as Preop Cardiovascular: Satisfactory Nausea/Vomiting: Absent Respiratory: Satisfactory Pain: Controlled Complications: Absent Post Op Complications Complications None Follow Up Care/Instructions Patient Instructions None needed. Anesthesia/Patient Condition Patient Condition Patient is doing well, no complaints, stable vital signs, no apparent adverse anesthesia problems. No complications reported per nursing. JENNIFER MAYO CRNA Dec 03, 2019 10:15
--- NOTE | 2019-12-03 11:00 | NUR ---
TO AMB SURG FROM PAR PER CART. PO FLUIDS PROVIDED. DENIES PAIN, ABLE TO FEEL TOUCH TO TOES OF LEFT FOOT AND ANKLE. TOES PINK, WARM. COBAN WRAPPED KERLIX DRESSING D/I. SPLINT SHOE APPLIED. ICE PACK AT ANKLE, LEFT FOOT ELEVATED.
--- NOTE | 2019-12-03 11:02 | Diagnostic Imaging Report ---
INDICATION: Postop left foot. TIME OF EXAM: 10:35 AM. TECHNIQUE: Two views of the left foot were obtained. FINDINGS: The metatarsals and phalanges appear to be intact. The midfoot and hindfoot are intact. No fractures are seen. IMPRESSION: No acute bony abnormality is detected. Dictated by: Dictated on workstation # [id number]
[2019-12-03] MEDS ORDERED: SPRIX NSEACH (11:50)
--- NOTE | 2019-12-03 11:55 | Physical Therapy Ortho Eval ---
PT Orthopedic Evaluation Type of Surgery left hallux rigidus Prior Level of Function Current Living Status: Alone Locomotion (Upon Admit): Independent Established Durable Medical Eq: None Subjective Subjective No c/o. Entry Into Home: Level Entry Objective Objective Issued and fit axillary crutches Motor Control Motor Control: Motor Control WNL ROM ROM: WFL, except focal deficit Strength Strength: WFL Transfer Transfers (B, C, W/C) (FIM): 6 Gait Gait Assistive Device: Crutches Right Lower Extremity: Right Weight Bearing Status RLE: Full Weight Bearing Left Lower Extremity: Left Weight Bearing Status LLE: Partial Weight Bearing Other Weight Bearing Inst.: He needs assistance (Partial weight) for the 1st 24 hours only Gait (FIM): 6 Distance: 200' Gait Level of Assist: 6 Summary/Comments PWB left LE Treatment Rendered Treatment: Gait Train Assessment/Goals Goal Time Frame: 1 Visit Safe Ambulation: Yes Plan Treatment Plan: Discharge, Gait Visits Per Week: 1 PT/Family Agrees to Plan: Yes Time Time In: 1136 Time Out: 1148 Total Billed Treatment Time: 12 Billed [facility] KASEY LEBLANC PT Dec 03, 2019 11:55
--- NOTE | 2019-12-03 12:00 | NUR ---
TAKING PO FLUIDS WITHOUT PROBLEM. NO CHANGE IN CMS/PAIN OR SITE ASSESSMENTS. CRUTCHES PROVIDED AND HAS BEEN UP TO AMB WITH PHYSICAL THERAPY, PARTIAL WEIGHT BEARING ON LEFT FOOT WITH SPLINT SHOE ON. STATES HE IS READY FOR DISMISSAL.
--- NOTE | 2019-12-03 14:27 | OPERATIVE REPORT ---
DATE OF SERVICE: 12/03/2019 SURGEON: Liv Lund DPM. PREOPERATIVE DIAGNOSIS: Hallux rigidus, left. POSTOPERATIVE DIAGNOSIS: Hallux rigidus, left. PROCEDURE: Cheilectomy, left foot. WOUND CLASS: Clean. ANESTHESIA: General. HEMOSTASIS: Pneumatic thigh tourniquet at 250 mmHg. INDICATIONS: This 29-year-old male presents complaining of painful left great toe joint. Conservative therapy is met with unsatisfactory results and the patient is agreeable to surgical intervention after risks and complications were discussed at length. No guarantees were extended to the patient and he is willing to proceed. DESCRIPTION OF PROCEDURE: The patient was brought back to the operating table and placed in secure supine position. Appropriate timeout was performed. A general anesthetic was then induced. A pneumatic thigh tourniquet was placed on left lower extremity. The left great toe was anesthetized with a Go block utilizing 10 mL of 0.5% Marcaine injected in the Go block. The left foot was then prepped and draped in normal sterile manner. The left foot was then elevated, allowed to exsanguinate after which the tourniquet was inflated to 250 mmHg. Attention was then directed to the dorsal aspect of the left first metatarsophalangeal joint where a 5 cm longitudinal linear incision was created. The incision was deepened in the same plane with great care to identify and retract all vital neurovascular structures. Only necessary blood vessels were cauterized as encountered. The incision was deepened down to the capsular tissue where a longitudinal capsulotomy was performed. This exposed the hypertrophic dorsal and medial eminence of the first metatarsal head, which was resected utilizing a power sagittal saw. The cartilage to the first metatarsal head as well as the base of the proximal phalanx was found to be intact without any significant pathology. There were fibrous bands within the articulation of the first metatarsophalangeal joint. This was resected utilizing sharp dissection as well as a rongeur. The head of the first metatarsal was further contoured and smoothed with a power bur. The instrumentation was withdrawn from the foot and we found that there was excellent range of motion to the left first metatarsophalangeal joint. No other pathology was identified. The wound was flushed with copious amounts of normal saline. Closure was then performed in layers. Deep closure was performed with 3-0 Vicryl, superficial with 4-0 Vicryl, skin closure with 4-0 Prolene in a horizontal mattress type stitch. Postoperative injection consisted of 8 mL of 0.5% Marcaine injected in a Go block followed by 10 mg dexamethasone into the first metatarsophalangeal joint area. Postoperative dressing consisted of bacitracin, Adaptic, sterile 4 x 4, sterile Kerlix all secured with a Coban wrap. The patient tolerated the anesthesia and procedure well and was transported from the operating room to the recovery area with vital signs stable and vascular status intact to all digits of the left foot. Postoperative instructions were given to the patient both verbally and written form. A prescription for Sprix nasal spray was dispensed to the patient. He is to follow up in my office in 10 period of time or sooner if necessary. Job ID: [id number] DocumentID: [id number] Dictated Date: 12/03/2019 10:22:11 Solder Making Supervisor Date: 12/03/2019 14:26:19 Dictated By: LIV LUND DPM
== END 2019-12-03 12:10 | disposition home or self-care (01) ==
LOC: SDC 07:34
PROVIDERS: ATTEND Podiatrist Foot & Ankle Surgery
DX: M20.22 Hallux rigidus, left foot (principal); E78.49 Other hyperlipidemia; F32.1 Major depressive disorder, single episode, moderate; F41.1 Generalized anxiety disorder; R53.1 Weakness; M79.606 Pain in leg, unspecified; J45.909 Unspecified asthma, uncomplicated; Z91.040 Latex allergy status; Z79.899 Other long term (current) drug therapy; Z88.5 Allergy status to narcotic agent; Z91.048 Other nonmedicinal substance allergy status
CPT/HCPCS: 73620; 87081

== ENCOUNTER 2020-02-14 10:57 | Outpatient (CLI) | payer BC ==
[~2020-02-14] VITALS: Ht 172 cm; Wt 81.8 kg
[~2020-02-14 10:57] MED LIST changes: +SPRIX NSEACH
[2020-02-14] MEDS ORDERED: NS IV 1000 ML 1,000 ML ONE (11:14)
[2020-02-14 11:23] LABS: HEMOGLOBIN 15.3 g/dL (13.3-17.7); MEAN PLATELET VOLUME 9.5 fL (9.0-12.2); WHITE BLOOD COUNT 6.5 10^3/uL (4.3-11.0)
[2020-02-14] MEDS ORDERED: NS IV 1000 ML 1,000 ML IV SCH (11:30)
[2020-02-14 11:35] VITALS: BP 125/92
--- NOTE | 2020-02-14 11:35 | NUR ---
PATIENT ARRIVED TO [facility] [facility] TO RECEIVE NORMAL SALINE 1L WIDE OPEN, LAB DRAW, UA, CXR, AND EKG. PATIENT COMPLAINED OF CHEST PAIN 6/10, FEELING DIZZY AND "SLUGGISH." PATIENT STATES HE DOESN'T FEEL RIGHT, COMMENTS THAT HIS LEFT HAND WENT NUMB AT HIS DR. VISIT. 20G IV STARTED IN RIGHT AC, LABS DRAWN, EKG AND CXR OBTAINED. FAXED EKG TO DR. ROMERO'S OFFICE. VINEET ELLIS CALLED DR. ROMERO. RECEIVED ORDER TO TRANSFER PATIENT TO THE EMERGENCY DEPARTMENT. GAVE BEDSIDE REPORT TO VINEET ERVIN.
--- NOTE | 2020-02-14 11:37 | Diagnostic Imaging Report ---
CHEST 1 VIEW, AP/PA ONLY Indication: Syncope, weakness and palpitations Comparison: None available. Findings: No focal airspace disease in the visualized lungs. Please note that the posterior lower lobes are poorly evaluated by portable radiography. No pleural effusion or pneumothorax. Normal cardiomediastinal silhouette. Impression: 1. No acute cardiopulmonary process by portable radiography. Dictated by: Dictated on workstation # [id number]
[2020-02-14 11:45] LABS: ALANINE AMINOTRANSFERASE 70 U/L (0-55); ALBUMIN 4.5 GM/DL (3.2-4.5); ALKALINE PHOSPHATASE 52 U/L (40-136); BILIRUBIN,TOTAL 0.7 MG/DL (0.1-1.0); BUN/CREATININE RATIO 19; CALCIUM 8.9 MG/DL (8.5-10.1); CARBON DIOXIDE 23 MMOL/L (21-32); CHLORIDE 107 MMOL/L (98-107); CREATININE SERUM 0.97 MG/DL (0.60-1.30); GFR ESTIMATED > 60; GLUCOSE 94 MG/DL (70-105); POTASSIUM 4.1 MMOL/L (3.6-5.0); SODIUM 140 MMOL/L (135-145); TOTAL PROTEIN 6.6 GM/DL (6.4-8.2)
[2020-02-14] MEDS ORDERED: OMEG1000 PO (11:49)
[2020-02-14 12:04] LABS: CREATINE KINASE MB 1.1 NG/ML (<6.6)
== END 2020-02-14 11:35 | disposition designated cancer center or children's hospital (05) ==
LOC: CARD 10:57
PROVIDERS: ATTEND Nurse Practitioner Family
DX: R55 Syncope and collapse (principal); R53.1 Weakness; R00.2 Palpitations
CPT/HCPCS: 36415; 71045; 80053; 82553; 82962; 84443; 84484; 85027; 93005

== ENCOUNTER 2020-02-14 11:43 | Emergency (ER) | payer BC ==
[~2020-02-14] VITALS: Ht 170.1 cm; Wt 81.6 kg
[2020-02-14] MEDS ORDERED: OMEG1000 PO (11:49)
--- NOTE | 2020-02-14 12:48 | ED Cardiac General ---
History of Present Illness General Chief Complaint: Cardiac/General Problems Stated Complaint: CHEST PAIN Nursing Triage Note: Pt sent to ED from day surg. Pt reports feeling weak and shaky at work. Pt was sent to day surg for fluids. Pt began having chest pain rated a 6/10. Source: patient Exam Limitations: no limitations History of Present Illness Date Seen by Provider: Feb 14, 2020 Time Seen by Provider: 12:47 Initial Comments To ER with left-sided chest pain from day surgery. This began earlier this morning while at work. 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 Nothing made it better. No shortness of breath no cough no fever. He felt weak and shaky. He had some numbness to his left arm. He was sent to the day surgery department, given IV fluids with complaint of worsening chest pain so was referred to the emergency room. Timing/Duration: 1-3 hours Severity: moderate Location: central Activities at Onset: none Modifying Factors: worse with exercise, worse with movement NTG SL APPRENTICE: No ASA po APPRENTICE: No Associated Systoms: Chest Pain Allergies and Home Medications Allergies Coded Allergies: adhesive tape (Unverified Allergy, Mild, BLISTERS, 11/27/19) Barbiturates (Unverified Allergy, Unknown, HX OF OPIOID ADDICTION, 11/27/19) Opioids - Morphine Analogues (Verified Allergy, Unknown, HX OPIOID ADDICTION, 11/27/19) latex (Unverified Allergy, Unknown, 11/27/19) meperidine (Unverified Allergy, Unknown, HX OPIOID ADDICTION, 11/27/19) morphine (Unverified Allergy, Unknown, HX OPIOID ADDICTION, 11/27/19) Home Medications Escitalopram Oxalate 5 Mg Tablet, 5 MG PO DAILY, (Reported) [Sprix Nasal Foley] , 1 SPRAY NSEACH EVERY 6-8 HOURS Prescribed by: LAMIN VEGA on 12/03/19 1150 Patient Home Medication List Home Medication List Reviewed: Yes Review of Systems Review of Systems Constitutional: see HPI; No chills, No fever EENTM: No Symptoms Reported Respiratory: See HPI Cardiovascular: See HPI, Chest Pain Gastrointestinal: No Symptoms Reported Genitourinary: No Symptoms Reported Musculoskeletal: no symptoms reported Skin: no symptoms reported Psychiatric/Neurological: No Symptoms Reported Endocrine: No Symptoms Reported Hematologic/Lymphatic: No Symptoms Reported Past Ojvbsbd-Pqbxtr-Zdncsc Hx Patient Social History Alcohol Use: Denies Use Recreational Drug Use: No (NONE SINCE LAST YEARS/WENT THROUGH REHAB 1 YEAR AGO) Drug of Choice: HX OPIOID ADDICITON 2007 2nd Hand Smoke Exposure: No Recent Foreign Travel: No Contact w/Someone Who Travel: No Recent Infectious Disease Expo: No Recent Hopitalizations: No Physical Abuse: No Sexual Abuse: No Mistreated: No Fear: No Immunizations Up To Date Date of Influenza Vaccine: Feb 12, 2019 Seasonal Allergies Seasonal Allergies: Yes Past Medical History Surgeries: Yes (JOO ARM, R KNEE X3, L HIP X3) Orthopedic Respiratory: Yes Asthma Currently Using CPAP: No Currently Using BIPAP: No Cardiac: No Neurological: No Reproductive Disorders: No Sexually Transmitted Disease: No Genitourinary: No Gastrointestinal: No Musculoskeletal: Yes (L HIP) Arthritis Endocrine: No HEENT: Yes (GLASSES) Loss of Vision: Denies Hearing Impairment: Denies Cancer: No Psychosocial: Yes Depression Integumentary: No Blood Disorders: No Adverse Reaction/Blood Tranf: No (N/A) Family Medical History No Pertinent Family Hx Physical Exam Vital Signs Vital Signs - First Documented 02/14/20 11:43 Temp 36.8 Pulse 63 Resp 10 B/P (MAP) 122/83 (96) Pulse Ox 97 O2 Delivery Room Air Capillary Refill : Less Than 3 Seconds Height, Weight, BMI Height: 5'11.00" Weight: 160lbs. oz. 72.681467mh; 28.00 BMI Method:Stated General Appearance: No Apparent Distress, WD/WN Neck: Full Range of Motion, Normal Inspection Respiratory: No Accessory Muscle Use, No Respiratory Distress Cardiovascular: Regular Rate, Rhythm, Normal Peripheral Pulses, Other (Left sternal border is tender to palpation) Gastrointestinal: Normal Bowel Sounds, Non Tender, Soft Extremity: Normal Capillary Refill, Normal Inspection Neurologic/Psychiatric: Alert, Oriented x3 Skin: Normal Color, Warm/Dry Progress/Results/Core Measures Results/Orders Vital Signs/I&O 02/14/20 11:43 Temp 36.8 Pulse 63 Resp 10 B/P (MAP) 122/83 (96) Pulse Ox 97 O2 Delivery Room Air Blood Pressure Mean: 96 Departure Communication (Admissions) 1256-EKG is without abnormality or findings of pericarditis, more likely findings of juvenile pattern. Symptoms are improving at this time, he is relieved to know that his markers of heart attack are normal. Impression Primary Impression: Chest pain Additional Impression: Costochondritis Disposition: 01 HOME, SELF-CARE Condition: Stable Departure-Patient Inst. Decision time for Depature: 12:57 Referrals: NICHO ROMERO MD (PCP/Family) Primary Care Physician Patient Instructions: Chest Pain (DC) Add. Discharge Instructions: 1. Return to ER for any concerns or worsening symptoms 2. Follow-up with your doctor next week. Call today to make an appointment. 3. All discharge instructions reviewed with patient and/or family. Voiced understanding. Work/School Note: Work Release Form Date Seen in the Emergency Department: Feb 14, 2020 Return to Work: Feb 15, 2020 Copy Copies To 1: NICHO ROMERO MD, PETER J APRN Feb 14, 2020 12:48
[2020-02-14 13:10] VITALS: BP 110/75
== END 2020-02-14 13:17 | disposition home or self-care (01) ==
LOC: EDUNIT# 11:43 → ER 11:44
DX: M94.0 Chondrocostal junction syndrome [Tietze] (principal); F32.9 Major depressive disorder, single episode, unspecified; Z88.8 Allergy status to other drugs, medicaments and biological substances; Z88.5 Allergy status to narcotic agent; Z91.040 Latex allergy status

== ENCOUNTER → 2020-02-29 | Outpatient (CLI) | payer BC ==
[~2020-02-29] MED LIST changes: +OMEG1000 PO
--- NOTE | 2020-02-29 15:11 | Diagnostic Imaging Report ---
INDICATION: Lateral knee pain. TIME OF EXAM: 02:29 p.m. EXAMINATION: Three views of the right knee were obtained. FINDINGS: Alignment is normal. Joint spaces are well maintained. Articular surfaces are smooth. No fracture, dislocation or effusion is identified. IMPRESSION: No acute bony abnormality is detected. Dictated by: Dictated on workstation # [id number]
== END ==
LOC: RAD 14:10
PROVIDERS: ATTEND Nurse Practitioner Family
DX: M25.561 Pain in right knee (principal)
CPT/HCPCS: 73562

== ENCOUNTER 2020-04-28 12:31 | Emergency (ER) | payer BC ==
[~2020-04-28] VITALS: Ht 170 cm; Wt 86.0 kg
[2020-04-28] MEDS ORDERED: KETOROLAC 30 MG/ML VIAL ONE (12:46)
[2020-04-28 12:58] LABS: BASOPHILS % (AUTO) 0 % (0-10); EOSINOPHILS # (AUTO) 0.5 10^3/uL (0.0-0.3); EOSINOPHILS % (AUTO) 6 % (0-10); HEMATOCRIT 41 % (40-54); HEMOGLOBIN 14.9 g/dL (13.3-17.7); LYMPHOCYTES # (AUTO) 2.5 10^3/uL (1.0-4.0); LYMPHOCYTES % (AUTO) 32 % (12-44); MEAN CORPUSCULAR HEMOGLOBIN 33 pg (25-34); MEAN CORPUSCULAR HGB CONC 36 g/dL (32-36); MEAN CORPUSCULAR VOLUME 90 fL (80-99); MEAN PLATELET VOLUME 9.5 fL (9.0-12.2); MONOCYTES # (AUTO) 0.9 10^3/uL (0.0-1.0); MONOCYTES % (AUTO) 11 % (0-12); NEUTROPHILS % (AUTO) 50 % (42-75); PLATELET COUNT 251 10^3/uL (130-400); WHITE BLOOD COUNT 7.9 10^3/uL (4.3-11.0)
[2020-04-28 13:10] LABS: ALBUMIN 4.2 GM/DL (3.2-4.5); CHLORIDE 103 MMOL/L (98-107); PROTHROMBIN TIME PATIENT 13.6 SEC (12.2-14.7); SODIUM 137 MMOL/L (135-145)
[2020-04-28 13:11] LABS: CALCIUM 8.8 MG/DL (8.5-10.1)
[2020-04-28 13:12] LABS: AMYLASE 75 U/L (25-125)
[2020-04-28 13:13] LABS: GLUCOSE 89 MG/DL (70-105); TOTAL PROTEIN 6.8 GM/DL (6.4-8.2)
[2020-04-28 13:14] LABS: BILIRUBIN,TOTAL 0.5 MG/DL (0.1-1.0); CARBON DIOXIDE 26 MMOL/L (21-32)
[2020-04-28] MEDS ORDERED: KETOROLAC 30 MG/ML VIAL IVP ONE (13:15)
[2020-04-28 13:16] LABS: ALKALINE PHOSPHATASE 58 U/L (40-136); CREATININE SERUM 0.96 MG/DL (0.60-1.30); GFR ESTIMATED > 60
[2020-04-28 13:17] LABS: BUN/CREATININE RATIO 16
--- NOTE | 2020-04-28 13:18 | ED Chest Pain ---
General Chief Complaint: Chest Pain Stated Complaint: CP Nursing Triage Note: PT STATES CENTRAL CP THAT STARTED ABOUT 0900. ON AMOXIL SINCE TUESDAY FOR SORE THROAT, RUNNY NOSE, NO COUGH, NO FEVER, NO SOA. Nursing Sepsis Screen: No Definite Risk Source: patient Exam Limitations: no limitations History of Present Illness Date Seen by Provider: Apr 28, 2020 Time Seen by Provider: 13:16 Initial Comments Sent to ER from [facility] walk-in clinic where he reported chest pain that started at 9 AM this morning. Has been on amoxicillin since for sore throat runny nose. No cough no fever no shortness of breath. He works at a daycare. He describes the chest pain as pressure rated at 7 out of 10. Daily medications include Lexapro and fish oil. The chest pain is worsened by movement and deep breathing. He has no personal cardiac history but his father had a heart attack at age 21 allegedly. 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 NTG SL WATERPROOFING MIXER: No Associated Symptoms: No fever/chills, No shortness of breath Allergies and Home Medications Allergies Coded Allergies: adhesive tape (Unverified Allergy, Mild, BLISTERS, 11/27/19) Barbiturates (Unverified Allergy, Unknown, HX OF OPIOID ADDICTION, 11/27/19) Opioids - Morphine Analogues (Verified Allergy, Unknown, HX OPIOID ADDICTION, 11/27/19) latex (Unverified Allergy, Unknown, 11/27/19) meperidine (Unverified Allergy, Unknown, HX OPIOID ADDICTION, 11/27/19) morphine (Unverified Allergy, Unknown, HX OPIOID ADDICTION, 11/27/19) Home Medications Escitalopram Oxalate 5 Mg Tablet, 5 MG PO DAILY, (Reported) [Sprix Nasal [place]] , 1 SPRAY NSEACH EVERY 6-8 HOURS Prescribed by: LAMIN VEGA on 12/03/19 1150 Patient Home Medication List Home Medication List Reviewed: Yes Review of Systems Review of Systems Constitutional: see HPI; No chills, No fever EENTM: No Symptoms Reported Respiratory: See HPI; Denies Shortness of Air Cardiovascular: See HPI, Chest Pain Gastrointestinal: No Symptoms Reported Genitourinary: No Symptoms Reported Musculoskeletal: no symptoms reported Skin: no symptoms reported Psychiatric/Neurological: No Symptoms Reported Endocrine: No Symptoms Reported Hematologic/Lymphatic: No Symptoms Reported Past Homyslw-Ktlosb-Gqgrfm Hx Patient Social History Alcohol Use: Denies Use Recreational Drug Use: No (NONE SINCE LAST YEARS/WENT THROUGH REHAB 1 YEAR AGO) Drug of Choice: HX OPIOID ADDICITON 2007 Smoking Status: Never a Smoker 2nd Hand Smoke Exposure: No Recent Foreign Travel: No Contact w/Someone Who Travel: No Recent Infectious Disease Expo: No Recent Hopitalizations: No Immunizations Up To Date Date of Influenza Vaccine: Feb 12, 2019 Seasonal Allergies Seasonal Allergies: Yes Past Medical History Surgeries: Yes (JOO ARM, R KNEE X3, L HIP X3) Orthopedic Respiratory: Yes Asthma Currently Using CPAP: No Currently Using BIPAP: No Cardiac: No Neurological: No Reproductive Disorders: No Sexually Transmitted Disease: No Genitourinary: No Gastrointestinal: No Musculoskeletal: Yes (L HIP, PERTH DISEASE) Arthritis Endocrine: No HEENT: Yes (GLASSES) Loss of Vision: Denies Hearing Impairment: Denies Cancer: No Psychosocial: Yes Depression Integumentary: No Blood Disorders: No Adverse Reaction/Blood Tranf: No (N/A) Family Medical History No Pertinent Family Hx Physical Exam Vital Signs Vital Signs - First Documented 04/28/20 04/28/20 12:56 12:57 Temp 36.7 Pulse 70 Resp 15 B/P (MAP) 115/76 (89) Pulse Ox 98 O2 Delivery Room Air Capillary Refill : Less Than 3 Seconds Height, Weight, BMI Height: 5'11.00" Weight: 160lbs. oz. [id number]; 29.00 BMI Method:Stated General Appearance: No Apparent Distress, WD/WN Neck: Full Range of Motion, Normal Inspection Respiratory: Lungs Clear, Normal Breath Sounds, No Accessory Muscle Use, No Respiratory Distress, Other (Sternum slightly tender to palpation) Cardiovascular: Regular Rate, Rhythm, Normal Peripheral Pulses Gastrointestinal: Normal Bowel Sounds, Non Tender, Soft Extremity: Normal Capillary Refill, Normal Inspection Neurologic/Psychiatric: Alert, Oriented x3 Skin: Normal Color, Warm/Dry Progress/Results/Core Measures Results/Orders Lab Results Laboratory Tests Test 04/28/20 12:49 04/28/20 12:50 04/28/20 13:05 Range/Units White Blood Count 7.9 4.3-11.0 10^3/uL Red Blood Count 4.55 4.30-5.52 10^6/uL Hemoglobin 14.9 13.3-17.7 g/dL Hematocrit 41 40-54 % Mean Corpuscular Volume 90 80-99 fL Mean Corpuscular Hemoglobin 33 25-34 pg Mean Corpuscular Hemoglobin Concent 36 32-36 g/dL Red Cell Distribution Width 11.8 10.0-14.5 % Platelet Count 251 130-400 10^3/uL Mean Platelet Volume 9.5 9.0-12.2 fL Immature Granulocyte % (Auto) 0 % Neutrophils (%) (Auto) 50 42-75 % Lymphocytes (%) (Auto) 32 12-44 % Monocytes (%) (Auto) 11 0-12 % Eosinophils (%) (Auto) 6 0-10 % Basophils (%) (Auto) 0 0-10 % Neutrophils # (Auto) 4.0 1.8-7.8 10^3/uL Lymphocytes # (Auto) 2.5 1.0-4.0 10^3/uL Monocytes # (Auto) 0.9 0.0-1.0 10^3/uL Eosinophils # (Auto) 0.5 H 0.0-0.3 10^3/uL Basophils # (Auto) 0.0 0.0-0.1 10^3/uL Immature Granulocyte # (Auto) 0.0 0.0-0.1 10^3/uL Prothrombin Time 13.6 12.2-14.7 SEC INR Comment 1.0 0.8-1.4 Activated Partial Thromboplast Time 26 24-35 SEC D-Dimer < 0.27 0.00-0.49 UG/ML Sodium Level 137 135-145 MMOL/L Potassium Level 4.0 3.6-5.0 MMOL/L Chloride Level 103 98-107 MMOL/L Carbon Dioxide Level 26 21-32 MMOL/L Anion Gap 8 5-14 MMOL/L Blood Urea Nitrogen 15 7-18 MG/DL Creatinine 0.96 0.60-1.30 MG/DL Estimat Glomerular Filtration Rate > 60 BUN/Creatinine Ratio 16 Glucose Level 89 70-105 MG/DL Calcium Level 8.8 8.5-10.1 MG/DL Corrected Calcium 8.6 8.5-10.1 MG/DL Magnesium Level 1.8 1.6-2.4 MG/DL Total Bilirubin 0.5 0.1-1.0 MG/DL Aspartate Amino Transf (AST/SGOT) 41 H 5-34 U/L Alanine Aminotransferase (ALT/SGPT) 65 H 0-55 U/L Alkaline Phosphatase 58 40-136 U/L Total Creatine Kinase 131 30-200 U/L Creatine Kinase MB 0.9 <6.6 NG/ML Myoglobin 34.6 10.0-92.0 NG/ML Troponin I < 0.028 <0.028 NG/ML B-Type Natriuretic Peptide < 10.0 <100.0 PG/ML Total Protein 6.8 6.4-8.2 GM/DL Albumin 4.2 3.2-4.5 GM/DL Amylase Level 75 25-125 U/L Lipase 29 8-78 U/L Coronavirus 2019 ([facility]) Negative Negative Urine Opiates Screen NEGATIVE NEGATIVE Urine Oxycodone Screen NEGATIVE NEGATIVE Urine Methadone Screen NEGATIVE NEGATIVE Urine Propoxyphene Screen NEGATIVE NEGATIVE Urine Barbiturates Screen NEGATIVE NEGATIVE Ur Tricyclic Antidepressants Screen NEGATIVE NEGATIVE Urine Phencyclidine Screen NEGATIVE NEGATIVE Urine Amphetamines Screen NEGATIVE NEGATIVE Urine Methamphetamines Screen NEGATIVE NEGATIVE Urine Benzodiazepines Screen NEGATIVE NEGATIVE Urine Cocaine Screen NEGATIVE NEGATIVE Urine Cannabinoids Screen NEGATIVE NEGATIVE My Orders Orders - INGRID HORVATH APRN Covid 19 Inhouse Test (04/28/20 13:15) Ketorolac Injection (Toradol Injection) (04/28/20 13:15) Medications Given in ED Current Medications Medications Dose Ordered Sig/Mattie Route Start Time Stop Time Status Last Admin Dose Admin Ketorolac Tromethamine 30 mg STK-MED ONCE .ROUTE 04/28/20 12:46 04/28/20 12:49 DC 04/28/20 12:56 15 MG Vital Signs/I&O 04/28/20 04/28/20 12:56 12:57 Temp 36.7 36.7 Pulse 70 Resp 15 B/P (MAP) 115/76 (89) Pulse Ox 98 O2 Delivery Room Air Blood Pressure Mean: 89 Departure Impression Primary Impression: Chest pain Disposition: 01 HOME, SELF-CARE Condition: Stable Departure-Patient Inst. Decision time for Depature: 13:48 Referrals: NICHO ROMERO MD (PCP/Family) Primary Care Physician Patient Instructions: Costochondritis (DC), Chest Pain (DC) Add. Discharge Instructions: 1. Return to ER for any concerns. Antiinflammatories as directed. All discharge instructions reviewed with patient and/or family. Voiced understanding. Work/School Note: Work Release Form Date Seen in the Emergency Department: Apr 28, 2020 Return to Work: May 01, 2020 Copy Copies To 1: NICHO ROMERO MD, PETER J APRN Apr 28, 2020 13:18
[2020-04-28 13:19] LABS: ALANINE AMINOTRANSFERASE 65 U/L (0-55); MAGNESIUM 1.8 MG/DL (1.6-2.4)
[2020-04-28 13:20] LABS: CREATINE KINASE 131 U/L (30-200); LIPASE 29 U/L (8-78)
[2020-04-28 13:27] LABS: CREATINE KINASE MB 0.9 NG/ML (<6.6)
--- NOTE | 2020-04-28 13:40 | Diagnostic Imaging Report ---
INDICATION: Chest pain. COMPARISON: 02/14/2020. FINDINGS: The lungs are clear. There is no failure, effusion, or pneumothorax. IMPRESSION: No acute appearing abnormality. Dictated by: Dictated on workstation # [id number]
[2020-04-28 13:45] LABS: AMPHETAMINE SCREEN, URINE NEGATIVE (NEGATIVE); BARBITURATE SCREEN URINE NEGATIVE (NEGATIVE); BENZODIAZEPINES SCREEN URINE NEGATIVE (NEGATIVE); CANNABINOID SCREEN, URINE NEGATIVE (NEGATIVE); COCAINE SCREEN URINE NEGATIVE (NEGATIVE); METHADONE STAT NEGATIVE (NEGATIVE); METHAMPHETAMINE SCREEN URINE S NEGATIVE (NEGATIVE); OPIATE SCREEN URINE NEGATIVE (NEGATIVE); OXYCODONE STAT NEGATIVE (NEGATIVE); PROPOXYPHENE STAT NEGATIVE (NEGATIVE); TRICYCLIC ANTIDEPRESSANTS SCRE NEGATIVE (NEGATIVE)
[2020-04-28 13:57] VITALS: BP 106/71
== END 2020-04-28 13:57 | disposition home or self-care (01) ==
LOC: EDUNIT# 12:31 → ER 12:32
DX: R07.9 Chest pain, unspecified (principal); F32.9 Major depressive disorder, single episode, unspecified; Z91.040 Latex allergy status; Z88.5 Allergy status to narcotic agent; Z88.8 Allergy status to other drugs, medicaments and biological substances; Z20.828 Contact with and (suspected) exposure to other viral communicable diseases
CPT/HCPCS: 71045; 80053; 80306; 82150; 82550; 82553; 83690; 83735; 83874; 83880; 84484; 85025; 85379; 85610; 85730; 93005; 93041; 99284; U0002; 36415; 87635

== ENCOUNTER 2020-06-17 12:30 | Emergency (ER) | payer BC ==
[~2020-06-17] VITALS: Ht 172 cm; Wt 86.0 kg
--- NOTE | 2020-06-17 12:58 | ED Cough/URI ---
General Chief Complaint: General Problems/Pain Stated Complaint: COUGH,SOB,CHILLS,PERALTA,FATIGUE Nursing Triage Note: PT STATES CHILLS, MUSCLE ACHES, SORE THROAT, COUGH, AND SOB SINCE LAST NIGHT. NO MEDS TAKEN FOR FEVER. Sepsis Screen: Possible Severe Sepsis Risk History of Present Illness Date Seen by Provider: Jun 17, 2020 Time Seen by Provider: 12:45 Initial Comments 29-year-old male presents with body aches, chills, sore throat, minimal cough minimal chest congestion. He reports his symptoms started last night he reports his fever was as high as 101. He also has a little bit of a headache. Does not take anything for it. He has no known sick contacts. Allergies and Home Medications Allergies Coded Allergies: adhesive tape (Unverified Allergy, Mild, BLISTERS, 11/27/19) Barbiturates (Unverified Allergy, Unknown, HX OF OPIOID ADDICTION, 11/27/19) Opioids - Morphine Analogues (Verified Allergy, Unknown, HX OPIOID ADDICTION, 11/27/19) latex (Unverified Allergy, Unknown, 11/27/19) meperidine (Unverified Allergy, Unknown, HX OPIOID ADDICTION, 11/27/19) morphine (Unverified Allergy, Unknown, HX OPIOID ADDICTION, 11/27/19) Home Medications Escitalopram Oxalate 5 Mg Tablet, 5 MG PO DAILY, (Reported) [Sprix Nasal [place]] , 1 SPRAY NSEACH EVERY 6-8 HOURS Prescribed by: LAMIN VEGA on 12/03/19 1150 Patient Home Medication List Home Medication List Reviewed: Yes Review of Systems Review of Systems Constitutional: see HPI, chills, fever, malaise EENTM: throat pain Respiratory: cough; No wheezing Cardiovascular: No chest pain, No palpitations Gastrointestinal: No diarrhea, No nausea, No vomiting Musculoskeletal: see HPI Skin: see HPI Psychiatric/Neurological: No Symptoms Reported Hematologic/Lymphatic: No Symptoms Reported Past Lxchirt-Hxtynw-Qzazgi Hx Past Med/Social Hx: Reviewed Nursing Past Med/Soc Hx Patient Social History Drug of Choice: HX OPIOID ADDICITON 2007 2nd Hand Smoke Exposure: No Recent Infectious Disease Expo: No Recent Hopitalizations: No Immunizations Up To Date Date of Influenza Vaccine: Feb 12, 2019 Seasonal Allergies Seasonal Allergies: Yes Past Medical History Surgeries: Yes (JOO ARM, R KNEE X3, L HIP X3) Orthopedic Respiratory: Yes Asthma Currently Using CPAP: No Currently Using BIPAP: No Cardiac: No Neurological: No Reproductive Disorders: No Sexually Transmitted Disease: No Genitourinary: No Gastrointestinal: No Musculoskeletal: Yes (L HIP, PERTH DISEASE) Arthritis Endocrine: No HEENT: Yes (GLASSES) Loss of Vision: Denies Hearing Impairment: Denies Cancer: No Psychosocial: Yes Depression Integumentary: No Blood Disorders: No Adverse Reaction/Blood Tranf: No (N/A) Family Medical History No Pertinent Family Hx Physical Exam Vital Signs - First Documented 06/17/20 12:42 Temp 37.9 Pulse 100 Resp 18 B/P (MAP) 119/79 (92) Pulse Ox 97 O2 Delivery Room Air Capillary Refill : Less Than 3 Seconds Height: 5'11.00" Weight: 160lbs. oz. [id number]; 29.00 BMI Method:Stated General Appearance: other (Febrile, no apparent distress) HEENT: PERRL/EOMI Neck: supple, normal inspection Respiratory: lungs clear, normal breath sounds Cardiovascular: normal peripheral pulses, regular rate, rhythm Gastrointestinal: non tender, soft Extremities: normal range of motion, non-tender, normal inspection Neurologic/Psychiatric: alert, normal mood/affect, oriented x 3, abnormal cerebellar tests Skin: normal color, warm/dry Progress/Results/Core Measures Suspected Sepsis Recent Fever Within 48 Hours: Yes Infection Criteria Present: Suspected New Infection New/Unexplained Altered Menta: No Sepsis Screen: Possible Severe Sepsis Risk SIRS Temperature: Pulse: 100 Respiratory Rate: 18 Laboratory Tests 06/17/20 13:00: White Blood Count 4.0L Blood Pressure 119 /79 Mean: 92 Laboratory Tests 06/17/20 13:00: Creatinine 1.00, INR Comment 1.0, Platelet Count 205, Total Bilirubin 0.5 Results/Orders Lab Results Laboratory Tests Test 06/17/20 12:50 06/17/20 13:00 Range/Units Coronavirus 2019 ([facility]) Positive H Negative Group A Streptococcus Screen NEGATIVE NEGATIVE White Blood Count 4.0 L 4.3-11.0 10^3/uL Red Blood Count 4.95 4.30-5.52 10^6/uL Hemoglobin 15.8 13.3-17.7 g/dL Hematocrit 44 40-54 % Mean Corpuscular Volume 90 80-99 fL Mean Corpuscular Hemoglobin 32 25-34 pg Mean Corpuscular Hemoglobin Concent 36 32-36 g/dL Red Cell Distribution Width 11.8 10.0-14.5 % Platelet Count 205 130-400 10^3/uL Mean Platelet Volume 9.6 9.0-12.2 fL Immature Granulocyte % (Auto) 0 % Neutrophils (%) (Auto) 47 42-75 % Lymphocytes (%) (Auto) 23 12-44 % Monocytes (%) (Auto) 28 H 0-12 % Eosinophils (%) (Auto) 2 0-10 % Basophils (%) (Auto) 0 0-10 % Neutrophils # (Auto) 1.9 1.8-7.8 10^3/uL Lymphocytes # (Auto) 0.9 L 1.0-4.0 10^3/uL Monocytes # (Auto) 1.1 H 0.0-1.0 10^3/uL Eosinophils # (Auto) 0.1 0.0-0.3 10^3/uL Basophils # (Auto) 0.0 0.0-0.1 10^3/uL Immature Granulocyte # (Auto) 0.0 0.0-0.1 10^3/uL Neutrophils % (Manual) 51 % Lymphocytes % (Manual) 27 % Monocytes % (Manual) 19 % Eosinophils % (Manual) 1 % Basophils % (Manual) 0 % Band Neutrophils 2 % Blood Morphology Comment NORMAL Prothrombin Time 13.8 12.2-14.7 SEC INR Comment 1.0 0.8-1.4 Activated Partial Thromboplast Time 29 24-35 SEC Fibrinogen 305 221-496 MG/DL Sodium Level 138 135-145 MMOL/L Potassium Level 3.8 3.6-5.0 MMOL/L Chloride Level 105 98-107 MMOL/L Carbon Dioxide Level 25 21-32 MMOL/L Anion Gap 8 5-14 MMOL/L Blood Urea Nitrogen 16 7-18 MG/DL Creatinine 1.00 0.60-1.30 MG/DL Estimat Glomerular Filtration Rate > 60 BUN/Creatinine Ratio 16 Glucose Level 95 70-105 MG/DL Calcium Level 8.8 8.5-10.1 MG/DL Corrected Calcium 8.4 L 8.5-10.1 MG/DL Total Bilirubin 0.5 0.1-1.0 MG/DL Aspartate Amino Transf (AST/SGOT) 71 H 5-34 U/L Alanine Aminotransferase (ALT/SGPT) 101 H 0-55 U/L Alkaline Phosphatase 61 40-136 U/L C-Reactive Protein High Sensitivity 0.37 0.00-0.50 MG/DL Total Protein 6.9 6.4-8.2 GM/DL Albumin 4.5 3.2-4.5 GM/DL Micro Results Microbiology 06/17/20 Influenza Types A,B Antigen ([place]) - Final, Complete My Orders Orders - LEYDI MAZA DO Vital Signs: Every 4 Hours (Or (06/17/20 12:50) Cbc With Automated Diff (06/17/20 12:50) Comprehensive Metabolic Panel (06/17/20 12:50) Hs C Reactive Protein (06/17/20 12:50) Protime With Inr (06/17/20 12:50) Partial Thromboplastin Time (06/17/20 12:50) Fibrinogen (06/17/20 12:50) Ekg Tracing (06/17/20 12:50) Influenza A And B Antigens (06/17/20 12:50) Rapid Strep A Screen (06/17/20 12:50) Covid 19 Inhouse Test (06/17/20 12:50) Chest 1 View, Ap/Pa Only (06/17/20 12:50) Ondansetron Injection (Zofran Injectio (06/17/20 13:15) Manual Differential (06/17/20 13:00) Medications Given in ED Current Medications Medications Dose Ordered Sig/Mattie Route Start Time Stop Time Status Last Admin Dose Admin Ondansetron HCl 4 mg ONCE ONCE IVP 06/17/20 13:15 06/17/20 13:16 DC 06/17/20 13:15 4 MG Vital Signs/I&O 06/17/20 06/17/20 12:42 14:00 Temp 37.9 37.9 Pulse 100 95 Resp 18 18 B/P (MAP) 119/79 (92) 107/69 (92) Pulse Ox 97 97 O2 Delivery Room Air Room Air Capillary Refill : Less Than 3 Seconds Blood Pressure Mean: 92 Progress Note : Time: 13:39 Progress Note Patient is positive for coronavirus. Patient states that he has had a history of asthma. There is history of lung disease we will see if we cannot get an outpatient bam infusion. Patient stable and discharged ECG Initial ECG Impression Date: Jun 17, 2020 Initial ECG Impression Time: 13:08 Initial ECG Rate: 91 Initial ECG Rhythm: Normal Sinus Initial ECG Intervals: Normal Initial ECG Impression: Normal Comment nsr, hr 91, no acute changes. Diagnostic Imaging Diagonstic Imaging: Xray Plain Films/CT/US/NM/MRI: chest Comments [facility] [place], [place] NAME: GENOVEVA MCCORMACK [facility] REC#: [id number] PT STATUS: REG ER : 1990 PHYSICIAN: LEYDI MAZA DO ADMIT DATE: 06/17/20/ER Draft Date of Exam:06/17/20 CHEST 1 VIEW, AP/PA ONLY INDICATION: Cough, fever. COMPARISON: 04/28/2020 TECHNIQUE: Single radiograph of the chest dated 06/17/2020. FINDINGS: The cardiac silhouette and pulmonary vasculature are within normal limits. The lungs are clear. No pleural effusion. No pneumothorax. No acute osseous abnormality. IMPRESSION: Stable examination without acute cardiopulmonary abnormality. Dictated on workstation # [id number] Dict: 06/17/20 1318 Trans: 06/17/20 1320 [facility] [id number] Interpreted by: ANA MONTALVO MD Electronically signed by: Departure Impression Primary Impression: COVID-19 Disposition: 01 HOME, SELF-CARE Condition: Stable Departure-Patient Inst. Referrals: NICHO ROMERO MD (PCP/Family) Primary Care Physician Patient Instructions: Coronavirus Disease 2019 (COVID-19) ED, [facility] Fact Sheet Add. Discharge Instructions: Vit D 4000 IU daily, Vit C 1000 mg twice daily, Zinc 100mg daily, Aspirin 325mg daily, Melatonin 6-10 mg nightly. Please follow CDC guidelines for return to work All discharge instructions reviewed with patient and/or family. Voiced understanding. LEYDI MAZA DO Jun 17, 2020 12:58
[2020-06-17 13:11] LABS: BASOPHILS % (AUTO) 0 % (0-10); EOSINOPHILS # (AUTO) 0.1 10^3/uL (0.0-0.3); EOSINOPHILS % (AUTO) 2 % (0-10); HEMATOCRIT 44 % (40-54); HEMOGLOBIN 15.8 g/dL (13.3-17.7); LYMPHOCYTES # (AUTO) 0.9 10^3/uL (1.0-4.0); LYMPHOCYTES % (AUTO) 23 % (12-44); MEAN CORPUSCULAR HEMOGLOBIN 32 pg (25-34); MEAN CORPUSCULAR HGB CONC 36 g/dL (32-36); MEAN CORPUSCULAR VOLUME 90 fL (80-99); MEAN PLATELET VOLUME 9.6 fL (9.0-12.2); MONOCYTES # (AUTO) 1.1 10^3/uL (0.0-1.0); MONOCYTES % (AUTO) 28 % (0-12); NEUTROPHILS # (AUTO) 1.9 10^3/uL (1.8-7.8); NEUTROPHILS % (AUTO) 47 % (42-75); PLATELET COUNT 205 10^3/uL (130-400)
[2020-06-17] MEDS ORDERED: ONDANSETRON 4 MG/2 ML (SDV) Z0FRAN IVP ONE (13:15)
--- NOTE | 2020-06-17 13:21 | Diagnostic Imaging Report ---
INDICATION: Cough, fever. COMPARISON: 04/28/2020 TECHNIQUE: Single radiograph of the chest dated 06/17/2020. FINDINGS: The cardiac silhouette and pulmonary vasculature are within normal limits. The lungs are clear. No pleural effusion. No pneumothorax. No acute osseous abnormality. IMPRESSION: Stable examination without acute cardiopulmonary abnormality. Dictated by: Dictated on workstation # [id number]
[2020-06-17 13:22] LABS: ALBUMIN 4.5 GM/DL (3.2-4.5); CHLORIDE 105 MMOL/L (98-107); POTASSIUM 3.8 MMOL/L (3.6-5.0); SODIUM 138 MMOL/L (135-145)
[2020-06-17 13:23] LABS: CALCIUM 8.8 MG/DL (8.5-10.1); PROTHROMBIN TIME PATIENT 13.8 SEC (12.2-14.7)
[2020-06-17 13:24] LABS: GLUCOSE 95 MG/DL (70-105); TOTAL PROTEIN 6.9 GM/DL (6.4-8.2)
[2020-06-17 13:25] LABS: CARBON DIOXIDE 25 MMOL/L (21-32)
[2020-06-17 13:26] LABS: BILIRUBIN,TOTAL 0.5 MG/DL (0.1-1.0)
[2020-06-17 13:28] LABS: ALKALINE PHOSPHATASE 61 U/L (40-136); GFR ESTIMATED > 60
[2020-06-17 13:29] LABS: BUN/CREATININE RATIO 16
[2020-06-17 13:31] LABS: ALANINE AMINOTRANSFERASE 101 U/L (0-55)
[2020-06-17 13:42] LABS: BAND NEUTROPHILS 2 %; BASOPHILS % (MANUAL) 0 %; EOSINOPHILS % (MANUAL) 1 %; LYMPHOCYTES % (MANUAL) 27 %; MONOCYTES % (MANUAL) 19 %; NEUTROPHILS % (MANUAL) 51 %; RBC MORPH NORMAL
[2020-06-17 14:00] VITALS: BP 107/69
== END 2020-06-17 13:59 | disposition home or self-care (01) ==
LOC: EDUNIT# 12:30 → ER 12:31
DX: U07.1 COVID-19 (principal); F32.9 Major depressive disorder, single episode, unspecified; Z88.5 Allergy status to narcotic agent; Z91.040 Latex allergy status
CPT/HCPCS: 71045; 80053; 85007; 85027; 85384; 85610; 85730; 86141; 87430; 87804; U0002; 36415; 87635; 93005

== ENCOUNTER 2020-06-17 13:50 | Outpatient (CLI) | payer BC, OTHER ==
[~2020-06-17] VITALS: Ht 172 cm; Wt 86.0 kg
[2020-06-17] MEDS ORDERED: diphenhydrAMINE 50 MG/ML INJ (BENADRYL) IV PRN (14:00)
[2020-06-17] MEDS ORDERED: BAMLANIVIMAB (NON FORM) 700 MG in NS (IVPB) 100 ML IV ONE (14:00)
[2020-06-17] MEDS ORDERED: EPINEPHrine INJECTION 1 MG/ML AMP IM PRN (14:00)
[2020-06-17 14:21] VITALS: BP 105/65
[2020-06-17 15:10] VITALS: BP 114/71
[2020-06-17 16:10] VITALS: BP 110/71
== END 2020-06-17 16:10 | disposition home or self-care (01) ==
LOC: INFUSION 13:50
PROVIDERS: ATTEND Student in an Organized Health Care Education/Training Program
DX: U07.1 COVID-19 (principal)